=== PATIENT | female | born 1965 | race African-American/Black ===

== ENCOUNTER 2024-05-06 11:11 | Outpatient (AMB) | payer MEDICARE, SELFPAY ==
--- NOTE | 2024-05-06 11:21 | HO.NEPHOV_ITS ---
Vital Signs 05/06/24 11:22 05/06/24 11:35 Height 5 ft 7 in Weight 200 lb 4 oz BMI 31.4 BP 178/80 H 152/80 H Blood Pressure Location Lt brachial Lt brachial Position Sitting Sitting Pulse 75 Pulse Source Pulse Oximeter Pulse Oximetry (%) 99 Oxygen Delivery Method Room Air Intake Visit Reasons: Previous pt/ CON American Sign Language Interpreter Required: No Accompanied by: Self / Same As Patient Allergies No Known Allergies Allergy (Verified 05/06/24 11:24) Medication List - Last Reconciled 05/06/24 by Edi Lance MD amlodipine-benazepril 10-20 mg 1 cap PO DAILY atenolol 25 mg PO DAILY insulin degludec (Tresiba FlexTouch U-100 insulin) 20 units subcut DAILY metformin ER 500 mg PO BID HPI Comments Details: 58 yr old woman with DM and microalbuminuria Here for annual follow up She was on ozempic- lost about 30 lbs and stopepd it due to possible risk of side effects She did not take her antihypertensive medications. [facility] Medical History (Updated 05/06/24 @ 11:37 by Edi Lance MD) Type 2 diabetes mellitus Stage 3 chronic kidney disease HTN (hypertension) Anemia Family History (Updated 05/06/24 @ 11:28 by Julia Diaz MA) Mother Hypertension Maternal Grandmother Diabetes Father Diabetes Social History (Updated 05/06/24 @ 11:28 by Julia Diaz MA) Alcohol intake: current Comment: Occasionally Patient Tobacco Use Status: Former Tobacco user Review of Systems Const Denies fever(s) and Denies weight loss Card Denies chest pain Resp Denies cough and Denies hemoptysis GI Denies abdominal pain, Denies diarrhea and Denies nausea Musc Denies back pain Neuro Denies focal weakness Physical Exam Vital Signs: Last Vital Signs Pulse 75 05/06/24 11:22 BP 152/80 H 05/06/24 11:35 Pulse Ox 99 05/06/24 11:22 Oxygen Delivery Method Room Air 05/06/24 11:22 BMI result Body Mass Index 31.4 Awake. Comfortable. Neck is supple. Mucosa moist. Lungs AE equal Heart S1-S2 heard no gallop. Abdomen soft. Extremities no edema. No involuntary movements. No myoclonus. Const General: comfortable; No acute distress Orientation/consciousness: patient oriented x3 Eyes General: appearance normal, both eyes and all related structures Visual Oquendo: normal visual oquendo by confrontation Neck Neck: Yes supple and Yes no JVD Resp Effort & Inspection: normal respiratory effort and respiratory effort not decreased Auscultation: rhonchi Cardio Palpation: no palpable S3 and no palpable S4 Heart sounds: no rubs GI Inspection: Yes normal to inspection Palpation (GI): Soft to palpation Percussion: Yes normal to percussion Auscultation: normal bowel sounds General: Yes no CVA tenderness Back/Spine/Pelvis Back: no CVA tenderness Skin General skin exam: no petechiae and no purpura Neuro General: patient oriented x3 and no focal motor deficits Extrem General: No clubbing and No edema Results Reviewed Nephrology Results: No Data to Display Assessment & Plan Assessment & Plan (1) Type 2 diabetes mellitus: Code(s): E11.9 - Type 2 diabetes mellitus without complications Category: Medical (2) HTN (hypertension): Code(s): I10 - Essential (primary) hypertension Category: Medical (3) Proteinuria: Code(s): R80.9 - Proteinuria, unspecified Category: Medical Plan Middle-aged man with diabetes mellitus and proteinuria. Renal function stable creatinine of 0.8. Recent urine protein creatinine ratio was 210 Blood pressure is suboptimal primarily because she skipped her medication today. Encouraged her to stay on current medications and stay compliant. Should stay on low-sodium diet. Needs to monitor blood pressure at home; she will buy a home blood pressure cuff. Goal is to maintain A1c less than 7% She will follow up with her PCP and start Ozempic or add additional medication to lower her blood sugar. Orders: Orders Basic Metabolic Panel 3 Months E11.9 - Type 2 diabetes mellitus without complications, I10 - Essential (primary) hypertension Total Protein Urine Random 3 Months E11.9 - Type 2 diabetes mellitus without complications, I10 - Essential (primary) hypertension Creatinine Urine 3 Months E11.9 - Type 2 diabetes mellitus without complications, I10 - Essential (primary) hypertension Coding Level of Care Code Est Pt Level 4 (70117) Diagnoses Type 2 diabetes mellitus E11.9 HTN (hypertension) I10 Proteinuria R80.9
[2024-05-06 11:22] VITALS: BP 178/80; PULSE 75; O2SAT 99; BMI 31.4
[2024-05-06 11:35] VITALS: BP 152/80
== END 2024-05-06 11:40 | disposition home or self-care (01) ==
LOC: HO.HKAE 11:12
PROVIDERS: PCP Nurse Practitioner Acute Care; Visit Provider Internal Medicine Hypertension Specialist
DX: E11.9 Type 2 diabetes mellitus without complications (principal); I10 Essential (primary) hypertension; R80.9 Proteinuria, unspecified
CPT/HCPCS: 99214

== ENCOUNTER → 2024-05-06 11:11 | Outpatient (BNVA) | payer MEDICARE, SELFPAY | PROVIDERS: PCP Nurse Practitioner Acute Care; Visit Provider Internal Medicine Hypertension Specialist | DX: E11.9 Type 2 diabetes mellitus without complications (principal); I10 Essential (primary) hypertension; N18.30 Chronic kidney disease, stage 3 unspecified; R80.9 Proteinuria, unspecified | CPT/HCPCS: 99212 ==

== ENCOUNTER 2024-07-22 14:00 | Outpatient (AMB) | payer MEDICARE, SELFPAY ==
[2024-07-22 14:01] VITALS: BP 170/78; PULSE 79; O2SAT 99; BMI 32.1
--- NOTE | 2024-07-22 14:01 | HO.NEPHOV ---
Vital Signs 07/22/24 14:01 Height 5 ft 7 in Weight 205 lb BMI 32.1 BP 170/78 H Blood Pressure Location Lt brachial Position Sitting Pulse 79 Pulse Source Pulse Oximeter Pulse Oximetry (%) 99 Oxygen Delivery Method Room Air Intake Visit Reasons: 3 mon follow up/ LVM Safety Coordinator Required: No Accompanied by: Self / Same As Patient Allergies No Known Allergies Allergy (Verified 07/22/24 14:03) Medication List - Last Reconciled 07/22/24 by Edi Lance MD amlodipine-benazepril 10-20 mg 1 cap PO DAILY atenolol 25 mg PO DAILY insulin glargine (Basaglar KwikPen U-100 Insulin) units subcut DAILY metformin ER 500 mg PO BID rosuvastatin 20 mg PO BEDTIME semaglutide (Ozempic) mg subcut QWEEK HPI Comments Details: 58 yr old woman with DM and microalbuminuria Here for annual follow up She was on ozempic- lost about 30 lbs and stopped it due to possible risk of side effects She did not take her antihypertensive medications. 07/22/24 BP sub optimal Now diagnosed with ? diab retinopathy Back on Ozempic [facility] Medical History (Updated 05/06/24 @ 11:37 by Edi Lance MD) Type 2 diabetes mellitus Stage 3 chronic kidney disease HTN (hypertension) Anemia Family History (Updated 05/06/24 @ 11:28 by Julia Diaz MA) Mother Hypertension Maternal Grandmother Diabetes Father Diabetes Social History (Updated 05/06/24 @ 11:28 by Julia Diaz MA) Alcohol intake: current Comment: Occasionally Patient Tobacco Use Status: Former Tobacco user Physical Exam Vital Signs: Last Vital Signs Pulse 79 07/22/24 14:01 BP 170/78 H 07/22/24 14:01 Pulse Ox 99 07/22/24 14:01 Oxygen Delivery Method Room Air 07/22/24 14:01 BMI result Body Mass Index 32.1 Const General: comfortable; No acute distress Orientation/consciousness: patient oriented x3 Eyes General: appearance normal, both eyes and all related structures Visual Oquendo: normal visual oquendo by confrontation Neck Neck: Yes supple and Yes no JVD Resp Effort & Inspection: normal respiratory effort and respiratory effort not decreased Auscultation: rhonchi Cardio Palpation: no palpable S3 and no palpable S4 Heart sounds: no rubs GI Inspection: Yes normal to inspection Palpation (GI): Soft to palpation Percussion: Yes normal to percussion Auscultation: normal bowel sounds General: Yes no CVA tenderness Back/Spine/Pelvis Back: no CVA tenderness Skin General skin exam: no petechiae and no purpura Neuro General: patient oriented x3 and no focal motor deficits Extrem General: No clubbing and No edema Results Reviewed Nephrology Results: No Data to Display Assessment & Plan Assessment & Plan (1) Type 2 diabetes mellitus: Code(s): E11.9 - Type 2 diabetes mellitus without complications Category: Medical (2) HTN (hypertension): Code(s): I10 - Essential (primary) hypertension Category: Medical (3) Proteinuria: Code(s): R80.9 - Proteinuria, unspecified Category: Medical Plan Middle-aged woman with diabetes mellitus and proteinuria. Renal function stable creatinine of 0.8. Recent urine protein creatinine ratio was 210 Blood pressure was suboptimal initially. Repeat blood pressure is acceptable Keep current meds Encouraged her to stay on current medications and stay compliant. Should stay on low-sodium diet. Needs to monitor blood pressure at home; she will buy a home blood pressure cuff. Goal is to maintain A1c less than 7% Orders: Orders UA and rflx microscopic 3 Months I10 - Essential (primary) hypertension, R80.9 - Proteinuria, unspecified Creatinine 3 Months I10 - Essential (primary) hypertension, R80.9 - Proteinuria, unspecified Basic Metabolic Panel 3 Months I10 - Essential (primary) hypertension, R80.9 - Proteinuria, unspecified Total Protein Urine Random 3 Months I10 - Essential (primary) hypertension, R80.9 - Proteinuria, unspecified Coding Level of Care Code Est Pt Level 4 (17071) Diagnoses Type 2 diabetes mellitus E11.9 HTN (hypertension) I10 Proteinuria R80.9
== END 2024-07-22 14:02 | disposition home or self-care (01) ==
PROVIDERS: PCP Nurse Practitioner Acute Care; Visit Provider Internal Medicine Hypertension Specialist
DX: I10 Essential (primary) hypertension (principal); E11.29 Type 2 diabetes mellitus with other diabetic kidney complication; R80.9 Proteinuria, unspecified
CPT/HCPCS: 99214

== ENCOUNTER → 2024-07-22 14:00 | Outpatient (BNVA) | payer MEDICARE, SELFPAY | PROVIDERS: PCP Nurse Practitioner Acute Care; Visit Provider Internal Medicine Hypertension Specialist | DX: E11.9 Type 2 diabetes mellitus without complications (principal); R80.9 Proteinuria, unspecified; I10 Essential (primary) hypertension | CPT/HCPCS: 99212 ==

== ENCOUNTER 2024-11-04 14:06 | Outpatient (AMB) | payer MEDICARE, SELFPAY ==
[2024-11-04 14:14] VITALS: BP 132/68; PULSE 71; O2SAT 97; BMI 32.9
--- NOTE | 2024-11-04 14:14 | HO.NEPHOV_ITS ---
Vital Signs 11/04/24 14:14 Height 5 ft 7 in Weight 210 lb BMI 32.9 BP 132/68 Blood Pressure Location Rt brachial Position Sitting Pulse 71 Pulse Source Pulse Oximeter Pulse Oximetry (%) 97 Oxygen Delivery Method Room Air Intake Visit Reasons: 3 Month FU CKD/ LVM Biofuels Processing Technician Required: No Accompanied by: Self / Same As Patient Allergies No Known Allergies Allergy (Verified 11/04/24 14:17) Medication List - Last Reconciled 11/04/24 by Edi Lance MD amlodipine-benazepril 10-20 mg 1 cap PO DAILY atenolol 25 mg PO DAILY insulin glargine (Basaglar KwikPen U-100 Insulin) units subcut DAILY metformin ER 500 mg PO BID rosuvastatin 20 mg PO BEDTIME PRN semaglutide (Ozempic) mg subcut QWEEK HPI Comments Details: 58 yr old woman with DM and microalbuminuria Here for annual follow up She was on ozempic- lost about 30 lbs and stopped it due to possible risk of fabiana e effects She did not take her antihypertensive medications. 07/22/24 BP sub optimal;Now diagnosed with ? diab retinopathy Back on Ozempic 11/04/24 Overall doing well c/o body pain PFSH Medical History (Updated 05/06/24 @ 11:37 by Edi Lance MD) Type 2 diabetes mellitus Stage 3 chronic kidney disease HTN (hypertension) Anemia Family History Mother Hypertension Maternal Grandmother Diabetes Father Diabetes Social History Alcohol intake: current Comment: Occasionally Patient Tobacco Use Status: Former Tobacco user Physical Exam Vital Signs: BMI result Body Mass Index 32.9 Const General: comfortable; No acute distress Orientation/consciousness: patient oriented x3 Eyes General: appearance normal, both eyes and all related structures Visual Oquendo: normal visual oquendo by confrontation Neck Neck: Yes supple and Yes no JVD Resp Effort & Inspection: normal respiratory effort and respiratory effort not decreased Auscultation: rhonchi Cardio Palpation: no palpable S3 and no palpable S4 Heart sounds: no rubs GI Inspection: Yes normal to inspection Palpation (GI): Soft to palpation Percussion: Yes normal to percussion Auscultation: normal bowel sounds General: Yes no CVA tenderness Back/Spine/Pelvis Back: no CVA tenderness Skin General skin exam: no petechiae and no purpura Neuro General: patient oriented x3 and no focal motor deficits Extrem General: No clubbing and No edema Results Reviewed Nephrology Results: No Data to Display Assessment & Plan Assessment & Plan (1) Type 2 diabetes mellitus: Code(s): E11.9 - Type 2 diabetes mellitus without complications Category: Medical (2) HTN (hypertension): Code(s): I10 - Essential (primary) hypertension Category: Medical (3) Proteinuria: Code(s): R80.9 - Proteinuria, unspecified Category: Medical Plan Middle-aged woman with diabetes mellitus and proteinuria. Renal function stable creatinine of 0.8. Recent urine protein creatinine ratio was 210 Blood pressure is acceptable Keep current meds Encouraged her to stay on current medications and stay compliant. Should stay on low-sodium diet. Needs to monitor blood pressure at home; she will buy a home blood pressure cuff. Goal is to maintain A1c less than 7% Orders: Orders Complete Blood Count no Diff 1 Month E11.9 - Type 2 diabetes mellitus without complications, I10 - Essential (primary) hypertension, R80.9 - Proteinuria, unspecified Comprehensive Met. Panel 1 Month E11.9 - Type 2 diabetes mellitus without complications, I10 - Essential (primary) hypertension, R80.9 - Proteinuria, unspecified Creatinine Urine 1 Month E11.9 - Type 2 diabetes mellitus without complications, I10 - Essential (primary) hypertension, R80.9 - Proteinuria, unspecified Hemoglobin A1c 1 Month E11.9 - Type 2 diabetes mellitus without complications, I10 - Essential (primary) hypertension, R80.9 - Proteinuria, unspecified Total Protein Urine Random 1 Month E11.9 - Type 2 diabetes mellitus without complications, I10 - Essential (primary) hypertension, R80.9 - Proteinuria, unspecified Lipid Panel 1 Month E11.9 - Type 2 diabetes mellitus without complications, I10 - Essential (primary) hypertension, R80.9 - Proteinuria, unspecified Coding Level of Care Code Est Pt Level 4 (16129) Diagnoses Type 2 diabetes mellitus E11.9 HTN (hypertension) I10 Proteinuria R80.9
--- OUTSIDE RECORDS SUMMARY | 2024-11-04 17:22 | XMS_ITS | Encounter Summary ---
Author Organization [facility] Address [address] [place] [address] Care Team Providers Care Inorganic Chemist Name Role Phone BaldoMaribell APRN Primary Care Provider [phone] Vianca Golden MD Unavailable [phone] Roberth Dee OD Unavailable [phone] Encounter Details Date Type Department Care Team (Latest Contact Info) Description 10/23/2024 Travel Social History Tobacco Use Types Packs/Day Years Used Date Smoking Tobacco: Never Smokeless Tobacco: Never Alcohol Use Standard Drinks/Week Comments Yes 0 (1 standard drink = 0.6 oz pur e alcohol) rare [facility] Utilities Answer Date Recorded In the past 12 months has e electric, gas, oil, or water company threatened to shut off services in your home? No 10/12/2024 Social Connection and Isolation Panel [NHANES] A nswer Date Recorded In a typical week, how many times do you talk on the phone with family, friends, or neighbors? Patient declined 10/12/2024 Frequency of Social Gatherings with Friends and Family Not on file 10/12/2024 Attends Buddhist Services Not on file 10/12 Active Member of Clubs or Organizations Not on f ile 10/12/2024 Attends Club or Organization Meetings Not on katherine e 10/12/2024 Marital Status Not on file 10/12/2024 AUDIT-C Answer Date Recorded Q1: How often do you have a drink containing alc ohol? Patient declined 10/12/2024 Average Number of Drinks Not on file 02/03/2 025 Frequency of Binge Drinking Not on file 11/2024 PHQ-2 Answer Date Recorded PHQ-2 Total Score 0 10/24/2023 Hunger Vital Sign Answer Date Recorded Within the past 12 months, y ou worried that your food would run out before you got the money to buy more. Patient declined Within the past 12 months, t he food you bought just didn't last and you didn't have money to get more. Patient declined 11/2024 PRAPARE - Transportation Answer Date Re corded In the past 12 months, has l ack of transportation kept you from medical appointments or from getting medications? Patient declined 10/12/2024 In the past 12 months, has l ack of transportation kept you from meetings, work, or from getting things needed for daily living? Patient declined 10/12/2024 Housing Stability Vital Sign Answer Reji e Recorded In the last 12 months, was t here a time when you were not able to pay the mortgage or rent on time? Patient declined 10/12/19 25 In the past 12 months, how m any times have you moved where you were living? 0 10/12/2024 At any time in the past 12 m [facility], were you homeless or living in a care home (including now)? Patient declined 10/12/2024 Sex and Gender Information Value Date Recorded Sex Assigned at Female 02/07/2023 12:20 PM EDT Gender Identity Female 02/07/2023 12:20 PM EDT Sexual Orientation Choose not to disclose 2022 12:20 PM EDT documented as of this encounter Plan of Treatment Upcoming Encounters Date Type Department Care Team (Late st Contact Info) Description 11/05/2024 10:00 AM EST Treatment [facility] [address] [facility] [address] [place] [phone] System, Provider Not In China Martinez, PT [address] [address] 11/10/2024 11:30 AM EST Treatment [facility] [address] [place] [address] Michelle China, PT [address], [place] [address] 11/12/2024 10:00 AM EST Treatment [facility] [address] [place] [address] Michelle China, PT [address] [place] [address] 11/17/2024 9:30 AM EDT Treatment [facility] [address] [place] [address] MichelleCapriceChina, PT [address] [place] [address] 11/19/2024 10:00 AM EDT Treatment [facility] [address] [place] [address] MichelleChina, PT [address] [place] [address] 02/16/2025 9:00 AM EDT Office Visit [address] [place] [address] Maribell Bland, FLESHING MACHINE OPERATOR [address] [facility] [address] [place] [address] 02/17/2025 8:00 AM EDT Consult [facility] [address] [facility] [address] [place] [address] Maribell Bland, FLESHING MACHINE OPERATOR [address] [facility] [address] [place] [address] Irma Cabrera MD [address] [place] [address] documented as of this encounter Goals Goal Patient Goal Type Associated Problems Recent Progress Patient-Stated? Author PT STGs Physical Therapy No China Martinez PT Note: In 4 wks... Pt with knee flexion ROM >/=90deg Pt with highest pain <7/10 Pt with knee extension ROM </=5deg Pt with good quad activation in quad set PT LTGs Physical Therapy No China Martinez PT Note: In 10 wks... Pt with knee ROM 0-120deg Pt with resting pain <2/10 Pt will be able to STS transfer without UE support and equal LE loading. Pt will be able to ascend/descend stairs x3 steps without pain in reciprocal pattern Pt with normalized gait documented as of this encounter Visit Diagnoses Not on filedocumented in this encounter Care Teams Inorganic Chemist Relationship Specialty Start Date End Date Maribell Bland APRN [address] [place] [address] PCP - General Family Medicine 06/06/21 Vianca Golden MD [address] [place] [id number] PCP - [employer] Medicare Attributed 04/09/24 Roberth Dee OD [address] [place] [address] Optometry 09/15/24 documented as of this encounter
--- OUTSIDE RECORDS SUMMARY | 2024-11-04 17:22 | XMS_ITS | Encounter Summary ---
Author Organization [facility] Address [address] [place] [address] Care Team Providers Care Mine Manager Name Role Phone BaldoMaribell APRN Primary Care Provider [phone] Vianca Golden MD Unavailable [phone] Roberth Dee OD Unavailable [phone] Encounter Details Date Type Department Care Team (Late Contact Info) Description 01/02/2023 Scanned Document [facility] GYNECOLOGY SCAN Gynecology, Scan Social History Tobacco Use Types Packs/Day Years Used Date Smoking Tobacco: Never Smokeless Tobacco: Never Alcohol Use Standard Drinks/Week Comments Yes 0 (1 standard drink = 0.6 oz pur e alcohol) rare Sex and Gender Information Value Date Recorded Sex Assigned at Female 02/07/2023 12:20 PM EDT Gender Identity Female 02/07/2023 12:20 PM EDT Sexual Orientation Choose not to disclose 2022 12:20 PM EDT COVID-19 Exposure Response Date Recorded In the last 10 days, have yo u been in contact with someone who was confirmed or suspected to have Coronavirus/COVID-19? No / Unsure 01/03/2023 2:50 PM EDT documented as of this encounter Plan of Treatment Upcoming Encounters Date Type Department Care Team (Late Contact Info) Description 11/05/2024 10:00 AM EST Treatment [facility] [address] [place] [phone] System, Provider Not In China Martinez, PT [address] [facility] [address] [place] [address] 11/10/2024 11:30 AM EST Treatment [facility] [address] [place] [address] China Martinez, PT [address] [place] [address] 11/12/2024 10:00 AM EST Treatment [facility] [address] [place] [address] China Martinez, PT [address] [place] [address] 11/17/2024 9:30 AM EDT Treatment [facility] [address] [place] [address] China Martinez, PT [address] [place] [address] 11/19/2024 10:00 AM EDT Treatment [facility] [address] [place] [address] China Martinez, PT [address] [place] [address] 02/16/2025 9:00 AM EDT Office Visit [facility] [address] [place] [address] Maribell Bland APRN [address] [place] [address] 02/17/2025 8:00 AM EDT Consult [facility] Endocrinology [place] [address] [place] [address] Maribell Bland APRN [address] [facility] [address] [place] [address] Iram Cabrera MD [address] [address] documented as of this encounter Visit Diagnoses Not on filedocumented in this encounter Care Teams Mine Manager Relationship Specialty Start Date End Date Maribell Bland APRN [address] [facility] [address] [place] [address] PCP - General Family Medicine 06/06/21 Vianca Golden MD [address] [place] [address] PCP - [employer] Medicare Attributed 04/09/24 Roberth Dee OD [address] [place] [address] Optometry 09/15/24 documented as of this encounter
--- OUTSIDE RECORDS SUMMARY | 2024-11-04 17:22 | XMS_ITS | Encounter Summary ---
Author Organization [facility] Address [address] [place] [address] Care Team Providers Care Product Tester Name Role Phone BaldoMaribell APRN Primary Care Provider [phone] Vianca Golden MD Unavailable [phone] Roberth Dee OD Unavailable [phone] Encounter Details Date Type Department Care Team (Late Contact Info) Description 01/31/2023 Scanned Document [facility] GYNECOLOGY SCAN Gynecology, Scan Social History Tobacco [...] suspected to have Coronavirus/COVID-19? No / Unsure 01/31/2023 12:44 PM EDT documented as of this encounter Plan of Treatment Upcoming Encounters Date Type Department Care Team (Late Contact Info) Description 11/05/2024 10:00 AM EST Treatment [facility] [address] [place] [phone] System, Provider Not In China Martinez, PT [address] [facility] [address] [place] [address] 11/10/2024 11:30 AM EST Treatment [facility] [address] [place] [address] China Martinez, PT [address] [place] [address] 11/12/2024 10:00 AM EST Treatment [facility] [address] [place] [address] China Martinez, PT [address] [place] [address] 11/17/2024 9:30 AM EDT Treatment [facility] [address] [place] [address] China Martinez, PT [address] [place] [address] 11/19/2024 10:00 AM EDT Treatment [facility] [address] [place] [address] China Martinez, PT [address] [place] [address] 02/16/2025 9:00 AM EDT Office Visit [facility] [address] [place] [address] Maribell Bland APRN [address] [place] [address] 02/17/2025 8:00 AM EDT Consult [facility] Endocrinology [place] [address] [place] [address] Maribell Bland APRN [address] [facility] [address] [place] [address] Irma Cabrera MD [address] [address] documented as of this encounter Visit Diagnoses Not on filedocumented in this encounter Care Teams Product Tester Relationship Specialty Start Date End Date Maribell Bland APRN [address] [facility] [address] [place] [address] PCP - General Family Medicine 06/06/21 Vianca Golden MD [address] [place] [address] PCP - [employer] Medicare Attributed 04/09/24 Roberth Dee OD [address] [place] [address] Optometry 09/15/24 documented as of this encounter
--- OUTSIDE RECORDS SUMMARY | 2024-11-04 17:22 | XMS_ITS | Clinical Summary ---
Author Organization [facility] Address [address] [place] [address] Phone Care Team Providers Care Flatbed Stitcher Name Role Phone Unavailable Primary Care Provider Unavailabl e Allergies No known active allergies Medications insulin degludec (Tresiba FlexTouch) 100 UNIT/ML injection Active metFORMIN (GLUCOPHAGE) 500 MG tablet Take 1 tablet by mouth 1 (one) time each day Active omega-3 (FISH OIL) 1000 MG capsule Take by mouth Active Ozempic, 0.25 or 0.5 MG/DOSE, 2 MG/1.5ML solution pen-injector INJECT 0.5 MG UNDER THE SKIN ONCE A WEEK. 2 Active Multiple Vitamin (multivitamin) tablet Take 1 tablet by mouth 1 (one) time each day Active ferrous sulfate 324 (65 Fe) MG EC tablet Take 324 mg by mouth 1 (one) time each day with breakfast Do not crush, chew, or split. Active clobetasol (TEMOVATE) 0.05 % cream APPLY TO AFFECTED AREA TWICE A DAY 2 Active metFORMIN XR (GLUCOPHAGE-XR) 500 MG 24 hr tablet Take 500 mg by mouth 2 Active b complex vitamins capsule Take 1 capsule by mouth 1 (one) time each day Active simvastatin (ZOCOR) 10 MG tablet Take 10 mg by mouth at bed time 2 Active atenolol (TENORMIN) 25 MG tablet TAKE 1 TABLET BY MOUTH EVERY DAY 90 tablet 3 3 Active amLODIPine-mark zepril (LOTREL 5-20) 5-20 MG per capsule TAKE 1 CAPSULE BY MOUTH EVERY DAY 90 capsule 2 4 Active Active Problems Problem Noted Date Diagnosed Date Type 2 diabetes mellitus without complication Proteinuria 04/12/2021 Morbid obesity 04/12/2021 Chronic kidney disease stage 3 04/12/2021 Hypertensive chronic kidney disease, unspecified, with chronic kidney disease stage I through stage IV, or unspecified 04/12/2021 Anemia of chronic disease 04/12/2021 Benign hypertensive renal disease 04/12/2021 Chronic kidney disease stage 1 04/12/2021 Long-term current use of insulin 01/14/2015 Dysmetabolic syndrome 01/13/2015 Disorder of nervous system due to type 2 diabete s mellitus 01/13/2015 Acquired acanthosis nigricans 01/13/2015 Hypercholesterolemia 01/13/2015 Hypertensive disorder 01/13/2015 Uncontrolled type 2 diabetes mellitus 01/13/2015 Overview (06/09/2024): Replacing diagnoses that were inactivated after the 06/09/24 Regulatory Import Family History Medical History Relation Comments Hypertension Mother Hypertension Sibling Relation Status Comments Father Unknown Mother Unknown Sibling Social History Tobacco Use Types Packs/Day Years Used Date Smoking Tobacco: Former Cigarettes Q uit: 09/09/1986 Smokeless Tobacco: Never Tobacco Cessation:Counseling Given: Not Answered Alcohol Use Standard Drinks/Week Comments Yes 0 (1 standard drink = 0.6 oz pure alcohol) Alcoholic Drinks/day: Occasional social drink Comments Unknown Sex and Gender Information Value Date Recorded Sex Assigned at Not on file Legal Sex Female 5:01 PM EST Gender Identity Not on file Sexual Orientation Not on file Last Filed Vital Signs Vital Sign Reading Time Taken Comments Blood Pressure 120/70 09/25/2022 1:56 PM EST Pulse 88 09/25/2022 1:56 PM EST Temperature - - Respiratory Rate - - Oxygen Saturation 98% 09/25/2022 1:56 PM EST Inhaled Oxygen Concentration - - Weight 97.5 kg (215 lb) 09/25/2022 1:56 PM EST Height 167.6 cm (5' 6 ) 11/24/2019 12:00 PM EDT Body Mass Index 34.7 11/24/2019 12:00 PM EDT Plan of Treatment Health Maintenance Due Date Last Done Comments Breast Cancer Screening 1965 Pneumococcal Vaccine: Pediatrics (0 to 5 Years) and At-Risk Patients (6 to 64 Years) (1 of 2 - PCV) 1969 Colorectal Cancer Screening: Annual FOBT 2012 Colorectal Cancer Screening: Colonoscopy 2012 Colorectal Cancer Screening: Sigmoidoscopy 2012 Diabetes: Ophthalmology Exam 10/10/2020 Diabetes: Pedal Pulse Checked 10/10/2020 Diabetes: Sensory Foot Exam 10/10/2020 Diabetes: Visual Foot Exam 10/10/2020 Diabetes: Hemoglobin A1C 08/29/2021 021, 06/10/2019 Influenza Vaccine (#1) 2024 Hepatitis B Vaccine Aged Out No longe r eligible based on patient's age to complete this topic Procedures Procedure Name Priority Date/Time Associated Diagnosis Comments EXT RESULT ENTRY Routine 05/30/2021 from Last 3 Months or Most Recently Relevant to Health Maintenance Results * (ABNORMAL) EXT RESULT ENTRY (05/30/2021) Sodium 138 137 - 147 Potassium 4.7 3.4 - 5.5 Chloride 104 99 - 108 Bicarbonate (CO2) 24 22 - 30 mmol/L Glucose 169 60 - 200 BUN 16 4 - 21 mg/dL Creatinine 0.82 0.50 - 1.10 mg/dL Calcium 9.6 8.7 - 10.7 mg/dL Phosphorus, Serum 4.5 eGFR Non-Afr Finnish 79 eGFR 92 Hemoglobin A1C 11.6(A) 4.0 - 6.0 Creatinine, Urine Random 175 mg/dL Urine Protein/Creatini ne Ratio 120 mg/g creat 05/30/2021 Historical Provider LAB BLOOD ORDERABLES Mis l Result from Last 3 Months or Most Recently Relevant to Health Maintenance Insurance [place]
--- OUTSIDE RECORDS SUMMARY | 2024-11-04 17:22 | XMS_ITS | Encounter Summary ---
Author Organization [facility] Address [address] [place] [address] Care Team Providers Care Salvage Diver Name Role Phone Maribell Bland APRN Primary Care Provider [phone] Vianca Golden MD Unavailable [phone] Roberth Dee OD Unavailable [phone] Reason for Visit * Reason Comments Follow-up Encounter Details Date Type Department Care Team (Latest Contact Info) Description 10/14/2024 9:00 AM EST Office Visit [address] [place] [phone] Maribell Bland APRN [address] [facility] [address] [place] [address] Type II diabetes mellitus with neurological manifestations (HCC) (Primary Dx); Benign essential hypertension Social History Tobacco Use Types Packs/Day Years Used Date Smoking Tobacco: Never Smokeless Tobacco: Never Alcohol Use Standard Drinks/Week Comments Yes 0 (1 standard drink = 0.6 oz pur e alcohol) rare C Utilities Answer Date Recorded In the past 12 months has [employer] electric, gas, oil, or water company threatened to shut off services in your home? No 10/12/2024 Social Connection and Isolation Panel [NHANES] A nswer Date Recorded In a typical week, how many times do you talk on the phone with family, friends, or neighbors? Patient declined 10/12/2024 Frequency of Social Gatherings with Friends and Family Not on file 10/12/2024 Attends Congregation Services Not on file 10/12 Active Member of Clubs or Organizations Not on f ile 10/12/2024 Attends Club or Organization Meetings Not on katherine e 10/12/2024 Marital Status Not on file 10/12/2024 AUDIT-C Answer Date Recorded Q1: How often do you have a drink containing alc ohol? Patient declined 10/12/2024 Average Number of Drinks Not on file 025 Frequency of Binge Drinking Not on [...] any time in the past 12 m [facility], were you homeless or living in a fci (including now)? Patient declined 10/12/2024 Sex and Gender Information Value Date Recorded Sex Assigned at Female 02/07/2023 12:20 PM EDT Gender Identity Female 02/07/2023 12:20 PM EDT Sexual Orientation Choose not to disclose 2022 12:20 PM EDT documented as of this encounter Last Filed Vital Signs Vital Sign Reading Time Taken Comments Blood Pressure 138/68 10/14/2024 9:17 AM EST Pulse 80 10/14/2024 8:30 AM EST Temperature 36 ??C (96.8 ??F) 10/14/2024 8:30 AM EST Respiratory Rate 18 10/14/2024 8:30 AM EST Oxygen Saturation 99% 10/14/2024 8:30 AM EST Inhaled Oxygen Concentration - - Weight 95.2 kg (209 lb 12.8 oz) 10/14/2024 8:30 AM EST Height 167.6 cm (5' 6 ) 10/14/2024 8:30 AM EST Body Mass Index 33.86 10/14/2024 8:30 AM EST documented in this encounter Progress Notes * Maribell Bland, MEDICAL LAB DIRECTOR - 10/14/2024 8:55 AM EST Assessment & Plan The following records were reviewed today: Problem List Items Addressed This Visit Endocrine Type II diabetes mellitus with neurological manifestations (HCC) - Primary Patient hemoglobin A1c is 6.6 which as improved from previous. Patient is at goal No side effects with current regimen She/will continue his current regimen Continue to recommend ADA diet. Exercise a minimum of 150 minutes/week. Annual eye exam Will continue to monitor quarterly. Relevant Orders BASIC METABOLIC PANEL Hemoglobin A1C with Estimated Average Glucose POCT Glycosylated Hemoglobin (Hb A1C) Cardiovascular and Mediastinum Benign essential hypertension Regi's blood pressure borderline elevated today. She notes she is not taking her antihypertensive. At this time she will continue Lotrel 06/28., Tenormin.. Recommend exercising a minum of 150 minutes per week. modified Mediterranean style diet high in Fibrous Vegetables such as salad greens, raw carrots, broccoli, cauliflower, mushrooms, onions, asparagus, radishes, artichokes, cabbage, sweet potatoes, olive oil to promote growth of good bacteria in the GI tract; low in processed foods and sweets. Return in 2 to 4 weeks for blood pressure check Office Visit on 07/21/2024 Component Date Value Ref Range Status Hemoglobin A1C 07/21/2024 11.8 (A) 4.0 - 6.0 % Final Lot Number 07/21/2024 [id number] Final Dispatcher Chief Oil 07/21/2024 Pass Pass Final Cholesterol, Total 07/23/2024 130 <200 mg/dL Final Cholesterol, HDL 07/23/2024 42 (L) > OR = 50 mg/dL Final Triglycerides 07/23/2024 126 <150 mg/dL Final LDL Cholesterol 07/23/2024 67 mg/dL (calc) Final Comment: Reference range: <100 Desirable range <100 mg/dL for primary prevention; <70 mg/dL for patients with CHD or diabetic patients with > or = 2 CHD risk factors. LDL-C is now calculated using the Mauricio calculation, which is a validated novel method providing better accuracy than the Friedewald equation in the estimation of LDL-C. Robert ROSAS et al. JYOTSNA. 2013;310(19): 2575-6193 (http://education.[employer]/faq/EYQ432) Cholesterol/HDL Ratio 07/23/2024 3.1 <5.0 (calc) Final Non HDL Chol. (LDL+VLDL) 07/23/2024 88 <130 mg/dL (calc) Final Comment: For patients with diabetes plus 1 major ASCVD risk factor, treating to a non-HDL-C goal of <100 mg/dL (LDL-C of <70 mg/dL) is considered a therapeutic option. Creatinine, Urine, Random 07/23/2024 206 20 - 275 mg/dL Final Microalbumin, Urine, Random 07/23/2024 5.2 See Note: mg/dL Final Comment: Reference Range: Reference Range Not established Microalbumin/Creatinine Ratio 07/23/2024 25 <30 mg/g creat Final Comment: The ADA defines abnormalities in albumin excretion as follows: Albuminuria Category Result (mg/g creatinine) Normal to Mildly increased <30 Moderately increased 30-299 Severely increased > OR = 300 The ADA recommends that at least two of three specimens collected within a 3-6 month period be abnormal before considering a patient to be within a diagnostic category. Glucose 07/23/2024 87 65 - 99 mg/dL Final Comment: Fasting reference interval Blood Urea Nitrogen (BUN) 07/23/2024 11 7 - 25 mg/dL Final Creatinine 07/23/2024 0.77 0.50 - 1.05 mg/dL Final Creatinine w/ eGFR 07/23/2024 88 > OR = 60 mL/min/1.73m2 Final BUN/Creatinine Ratio 07/23/2024 SEE NOTE: 6 - 22 (calc) Final Comment: Not Reported: BUN and Creatinine are within reference range. Sodium 07/23/2024 142 135 - 146 mmol/L Final Potassium 07/23/2024 4.4 3.5 - 5.3 mmol/L Final Chloride 07/23/2024 104 98 - 110 mmol/L Final CO2 07/23/2024 27 20 - 32 mmol/L Final Calcium 07/23/2024 9.9 8.6 - 10.4 mg/dL Final Protein, Total 07/23/2024 7.2 6.1 - 8.1 g/dL Final Albumin 07/23/2024 4.4 3.6 - 5.1 g/dL Final Globulin 07/23/2024 2.8 1.9 - 3.7 g/dL (calc) Final Albumin/Globulin Ratio 07/23/2024 1.6 1.0 - 2.5 (calc) Final Bilirubin, Total 07/23/2024 0.3 0.2 - 1.2 mg/dL Final Alkaline Phosphatase 07/23/2024 49 37 - 153 U/L Final Aspartate Aminotrans (AST) 07/23/2024 17 10 - 35 U/L Final Alanine Aminotrans (ALT) 07/23/2024 17 6 - 29 U/L Final There are no Patient Instructions on file for this visit. Return in about 4 months (around 02/11/2025). During this visit patients's goals and treatment preferences have been used to guide decision making. Patient understands his/her options and the pros and cons of these options. Subjective Subjective Patient ID: Regi Peres is a 58 y.o. female. Chief Complaint Patient presents with Follow-up Regi notes she does not check her blood glucose daily. She reports compliance with all her medication. She does not have any side effects. Today her blood pressure is borderline elevated. She reports not taking he blood pressure medication today. Review of Systems Constitutional: Negative for activity change and fatigue. HENT: Positive for congestion. Eyes: Negative for visual disturbance. Respiratory: Positive for cough. Negative for apnea, chest tightness, shortness of breath and wheezing. Cardiovascular: Negative for chest pain, palpitations and leg swelling. Genitourinary: Negative for frequency and urgency. Neurological: Negative for dizziness, speech difficulty, weakness, numbness and headaches. Objective Objective Vitals: 10/14/24 0830 10/14/24 0917 BP: (!) 140/78 138/68 BP Location: Right arm Patient Position: Sitting Cuff Size: Large Pulse: 80 Resp: 18 Temp: 96.8 ??F (36 ??C) TempSrc: Temporal SpO2: 99% Weight: 95.2 kg (209 lb 12.8 oz) Height: 1.676 m (5' 6 ) Body mass index is 33.86 kg/m??. Physical Exam Constitutional: Appearance: She is well-developed. HENT: Head: Normocephalic and atraumatic. Eyes: General: No scleral icterus. Conjunctiva/sclera: Conjunctivae normal. Cardiovascular: Rate and Rhythm: Normal rate and regular rhythm. Heart sounds: No murmur heard. No friction rub. No gallop. Pulmonary: Effort: Pulmonary effort is normal. Breath sounds: Normal breath sounds. No wheezing or rales. Skin: General: Skin is warm and dry. Findings: No rash. Neurological: Mental Status: She is alert and oriented to person, place, and time. Coordination: Coordination normal. Psychiatric: Behavior: Behavior normal. Current Outpatient Medications: amLODIPine-benazepril (LOTREL) 10-20 MG per capsule, TAKE 1 CAPSULE BY MOUTH EVERY DAY, Disp: 90 capsule, Rfl: 1 Ascorbic Acid (vitamin C) 1000 MG tablet, Take 1 tablet (1,000 mg total) by mouth daily., Disp: , Rfl: aspirin enteric coated (ECOTRIN LOW STRENGTH) 81 MG EC tablet, Take 1 tablet (81 mg total) by mouthdaily., Disp: , Rfl: atenolol (TENORMIN) 25 MG tablet, Take 1 tablet (25 mg total) by mouth daily., Disp: , Rfl: clobetasol (TEMOVATE) 0.05 % cream, APPLY TO AFFECTED AREA TWICE A DAY, Disp: 45 g, Rfl: 0 coenzyme Q10 (CoQ10) 100 MG capsule, Take 1 capsule (100 mg total) by mouth daily., Disp: 90 capsule, Rfl: 3 ergocalciferol (VITAMIN D2,DRISDOL) 91730 units Cap, Take by mouth., Disp: , Rfl: ferrous gluconate (FERGON) 324 MG tablet, Take 1 tablet (324 mg total) by mouth every morning with breakfast. Take 2 hours before or 4 hours after acid reducers., Disp: , Rfl: ferrous sulfate 325 (65 FE) MG tablet, Take 1 tablet (325 mg total) by mouth daily. Take 2 hours before or 4 hours after acid reducers., Disp: , Rfl: insulin glargine, BASAGLAR KWIKPEN, 100 UNIT/ML prefilled pen injection, Inject 35 units under the skin nightly, Disp: 15 mL, Rfl: 3 Insulin Pen Needle 31G X 5 MM Misc, Please utilize nightly with insulin., Disp: 100 pen needle, Rfl: 1 magnesium oxide 400 (241.3 Mg) MG Tab tablet, Take 1 tablet (400 mg total) by mouth daily., Disp: ,Rfl: metFORMIN (GLUCOPHAGE-XR) 500 MG 24 hr tablet, TAKE 1 TABLET BY MOUTH TWICE A DAY, Disp: 180 tablet, Rfl: 0 multivitamin Tab tablet, Take 1 tablet by mouth daily., Disp: , Rfl: omega-3 acid ethyl esters (LOVAZA) 1 G capsule, Take by mouth., Disp: , Rfl: OneTouch Verio strip, TEST BLOOD SUGAR 3 TIMES A DAY, Disp: , Rfl: Probiotic Product (PROBIOTIC-10 PO), Take by mouth., Disp: , Rfl: rosuvastatin (CRESTOR) 20 MG tablet, TAKE 1 TABLET BY MOUTH EVERY DAY, Disp: 90 tablet, Rfl: 0 semaglutide (Ozempic, 1 MG/DOSE,) (1 mg/dose pen) prefilled pen injection, INJECT 1 MG UNDER THE SKIN ONCE A WEEK., Disp: 3 mL, Rfl: 1 triamcinolone (KENALOG) 0.5 % ointment, Apply topically 2 (two) times a day., Disp: 60 g, Rfl: 0 No Known Allergies Past Medical History: Diagnosis Date Depression Diabetes mellitus (HCC) Hyperlipidemia Hypertension Vitamin D deficiency Social History Tobacco Use Smoking status: Never Smokeless tobacco: Never Vaping Use Vaping status: Never Used Substance Use Topics Alcohol use: Yes Comment: rare Drug use: Never History reviewed. No pertinent family history. documented in this encounter Miscellaneous Notes * Assessment & Plan Note - Maribell Bland APRN - 10/14/2024 12:08 PM EST Associated Problem(s): Benign essential hypertension Regi's blood pressure borderline elevated today. She notes she is not taking her antihypertensive. At this time she will continue Lotrel 06/28., Tenormin.. Recommend exercising a minum of 150 minutes per week. modified Mediterranean style diet high in Fibrous Vegetables such as salad greens, raw carrots, broccoli, cauliflower, mushrooms, onions, asparagus, radishes, artichokes, cabbage, sweet potatoes, olive oil to promote growth of good bacteria in the GI tract; low in processed foods and sweets. Return in 2 to 4 weeks for blood pressure check * Assessment & Plan Note - Maribell Bland APRN - 10/14/2024 12:05 PM EST Associated Problem(s): Type II diabetes mellitus with neurological manifestations (HCC) Patient hemoglobin A1c is 6.6 which as improved from previous. Patient is at goal No side effects with current regimen She/will continue his current regimen Continue to recommend ADA diet. Exercise a minimum of 150 minutes/week. Annual eye exam Will continue to monitor quarterly. documented in this encounter Plan of Treatment Upcoming Encounters Date Type Department Care Team (Late st Contact Info) Description 11/05/2024 10:00 AM EST Treatment [facility] [address] [place] [phone] System, Provider Not In China Martinez, PT [address] [address] 11/10/2024 11:30 AM EST Treatment [facility] [address] [place] [phone] China Martinez, PT [address] [address] 11/12/2024 10:00 AM EST Treatment [facility] [address] [facility] [address] [place] [address] China Martinez, PT [address] [id number] 11/17/2024 9:30 AM EDT Treatment [facility] [address] [place] [phone] Nik Martineza, PT [address] [place] [address] 11/19/2024 10:00 AM EDT Treatment [facility] [address] [place] [address] China Martinez, PT [address] [place] [address] 02/16/2025 9:00 AM EDT Office Visit [address] [phone] Maribell Bland, MEDICAL LAB DIRECTOR [address] [address] 02/17/2025 8:00 AM EDT Consult [facility] Endocrinology [place] [address] [place] [phone] Maribell Bland, MEDICAL LAB DIRECTOR [address] [address] Irma Cabrera MD [address] [facility] [address] [place] [address] Scheduled Orders Name Type Priority Associated Diagnoses Orde r Schedule BASIC METABOLIC PANEL Lab Routine Type II diabetes mellitus with neurological manifestations (HCC) Ordered: 10/14/2024 Hemoglobin A1C with Estimated Average Glucose Lab Routine Type II diabetes mellitus with neurological manifestations (HCC) Ordered: 10/14/2024 documented as of this encounter Goals Goal [...] normalized gait documented as of this encounter Procedures Procedure Name Priority Date/Time Associated Diagnosis Comments POCT GLYCOSYLATED HEMOGLOBIN (HGB A1C) Routine 10/14/2024 12:16 PM EST Type II diabetes mellitus with neurological manifestations (HCC) documented in this encounter Results * (ABNORMAL) POCT Glycosylated Hemoglobin (Hb A1C) (10/14/2024 12:16 PM EST) Hemoglobin A1C 6.6(A) 4.0 - 6.0 % Lot Number [id number] Dispatcher Chief Oil Pass Pass Blood 10/14/2024 12:1 6 PM EST Maribell Bland APRN POINT OF CARE TEST O RDERABLES documented in this encounter Visit Diagnoses Diagnosis Type II diabetes mellitus with neurological manifestations (HCC)- Primary Type II or unspecified type diabetes mellitus with neurological manifestations, not stated as uncontrolled Benign essential hypertension Essential hypertension, benign documented in this encounter Care Teams Salvage Diver Relationship Specialty Start Date End Date Maribell Bland APRN [address] [place] [address] PCP - General Family Medicine 06/06/21 Vianca Golden MD [address] [place] [address] PCP - [employer] Medicare Attributed 04/09/24 Roberth Dee OD [address] [place] [address] Optometry 09/15/24 documented as of this encounter
--- OUTSIDE RECORDS SUMMARY | 2024-11-04 17:22 | XMS_ITS | Clinical Summary ---
Author Organization [facility] Address [address] [place] [address] Care Team Providers Care Barrel Assembly Inspector Name Role Phone Maribell Bland APRN Primary Care Provider [phone] Vianca Golden MD Unavailable [phone] Roberth Dee OD Unavailable [phone] Allergies No known active allergies Medications Medication Sig Dispensed Refills Start Date End Date Status atenolol (TENORMIN) 25 MG tablet Take 1 tablet (25 mg total) by mouth daily. 02/23/20 20 Active OneTouch Verio strip TEST BLOOD SUGAR 3 TIMES A DAY 04/03/20 20 Active omega-3 acid ethyl esters (LOVAZA) 1 G capsule Take by mouth. Active triamcinolone (KENALOG) 0.5 % ointmentIndications:Flex ural eczema Apply topically 2 (two) times a day. 60 g 04/18/20 20 Active magnesium oxide 400 (241.3 Mg) MG Tab tablet Take 1 tablet (400 mg total) by mouth daily. Active ferrous gluconate (FERGON) 324 MG tablet Take 1 tablet (324 mg total) by mouth every morning with breakfast. Take 2 hours before or 4 hours after acid reducers. Active Ascorbic Acid (vitamin C) 1000 MG tablet Take 1 tablet (1,000 mg total) by mouth daily. Active ergocalciferol (VITAMIN D2,DRISDOL) 27265 units Cap Take by mouth. Active Probiotic Product (PROBIOTIC-10 PO) Take by mouth. Active clobetasol (TEMOVATE) 0.05 % creamIndications:Type 2 diabetes mellitus with diabetic dermatitis, with long-term current use of insulin (HCC) APPLY TO AFFECTED AREA TWICE A DAY 45 g 06/30/20 22 Active multivitamin Tab tablet Take 1 tablet by mouth daily. Active aspirin enteric coated (ECOTRIN LOW STRENGTH) 81 MG EC tablet Take 1 tablet (81 mg total) by mouth daily. Active ferrous sulfate 325 (65 FE) MG tablet Take 1 tablet (325 mg total) by mouth daily. Take 2 hours before or 4 hours after acid reducers. Active Insulin Pen Needle 31G X 5 MM MiscIndications:Type 2 diabetes mellitus with diabetic dermatitis, with long-term current use of insulin (HCC) Please utilize nightly with insulin. 100 pen needle 1 06/16/20 24 Active coenzyme Q10 (CoQ10) 100 MG capsuleIndications:Pure hypercholesterolemia Take 1 capsule (100 mg total) by mouth daily. 90 capsule 3 06/18/20 24 Active insulin glargine, BASAGLAR KWIKPEN, 100 UNIT/ML prefilled pen injectionIndications:Typ e II diabetes mellitus with neurological manifestations (HCC) Inject 35 units under the skin nightly 15 mL 3 07/21/20 24 Active amLODIPine-benazepril (LOTREL) 10-20 MG per capsuleIndications:Benig n essential hypertension TAKE 1 CAPSULE BY MOUTH EVERY DAY 90 capsule 1 08/04/20 24 Active rosuvastatin (CRESTOR) 20 MG tabletIndications:Pure hypercholesterolemia TAKE 1 TABLET BY MOUTH EVERY DAY 90 tablet 09/11/19 25 Active metFORMIN (GLUCOPHAGE-XR) 500 MG 24 hr tabletIndications:Type II diabetes mellitus with neurological manifestations (HCC) TAKE 1 TABLET BY MOUTH TWICE A DAY 180 tablet 09/14/19 25 Active semaglutide (Ozempic, 1 MG/DOSE,) (1 mg/dose pen) prefilled pen injectionIndications:Typ e II diabetes mellitus with neurological manifestations (HCC) INJECT 1 MG UNDER THE SKIN ONCE A WEEK. 3 mL 1 10/13/19 25 Active semaglutide (OZEMPIC) (1 mg/dose pen) prefilled pen injectionIndications:Typ e II diabetes mellitus with neurological manifestations (HCC) Inject 1 mg under the skin once a week. 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 Uncontrolled Increase Ozmepic 1 mg weekly, Basaglar fronm 30 to 35 units Check bG twice daily ADA diet. Exercise a minimum of 150 minutes/week. Annual eye exam and follow-up with retina specialist Will continue to monitor quarterly. Achilles tendinitis 11/28/2022 Allergic rhinitis 11/28/2022 Asthmatic bronchitis 11/28/2022 Benign essential hypertension 11/28/2022 Assessment & Plan (10/14/2024 12:08 PM EST): Regi's blood pressure borderline elevated today. She [...] to 4 weeks for blood pressure check Assessment & Plan (07/26/2024 7:00 PM EST): Blood pressure is normal. No side effects. Renal function is stable. Patient will continue amlodipine-benazepril, atenolol. DASH diet Recommend a minimum of 150 minutes of exercise a week. Assessment & Plan (07/21/2024 11:08 PM EST): Blood pressure is normal. No side effects. Renal function is stable. Patient will continue lisinopril. DASH diet Recommend a minimum of 150 minutes of exercise a week. Assessment & Plan (10/26/2023 5:38 PM EST): Regi blood pressure is elevated. Will increase Lotrel. Low sodium diet. Assessment & Plan (12/07/2022 8:31 PM EDT): Regi's blood pressure is normal on Atenolol and Lotrel. Low sodium. CKD (chronic kidney disease) stage 2, GFR 60-89 ml/min 11/28/2022 Hyperlipidemia 11/28/2022 Assessment & Plan (07/21/2024 11:12 PM EST): Will continue atorvastatin daily for LDL less than 70. Assessment & Plan (12/07/2022 8:32 PM EDT): The 10-year ASCVD risk score (Priyank LUNA, et al., 2019) is: 19.1% Values used to calculate the score: Age: 57 years Sex: Female Is Non- : Yes Diabetic: Yes Tobacco smoker: No Systolic Blood Pressure: 128 mmHg Is BP treated: Yes HDL Cholesterol: 40 mg/dL Total Cholesterol: 217 mg/dL Continue atorvastatin daily. Pityriasis versicolor 11/28/2022 Schizoaffective disorder 11/28/2022 Assessment & Plan (10/26/2023 5:41 PM EST): Stable will continue to follow-up with provider Assessment & Plan (12/07/2022 8:32 PM EDT): Continue to followup with behavioral health provider. Thyroid nodule 11/28/2022 Type 2 diabetes mellitus wit h diabetic dermatitis, with long-term current use of insulin 12/01/2021 Assessment & Plan (06/18/2024 10:53 AM EDT): Today fasting blood glucose 214 mg/dl this morning. Assessment & Plan (10/24/2023 11:39 AM EST): Patient hemoglobin A1c is 8.7 . Improved from 14. Will increase Ozempic to 1 mg Continue to recommend ADA diet. Exercising 3 to 5 days a week for minimal 35 minutes. Annual eye exam Will continue to monitor quarterly. Assessment & Plan (12/01/2021 5:06 PM EDT): Regi hemoglobin A1c 6.7 Controlled will continue Ozempic, Metformin and tresiba. ADA diet Exercise 3-5 days a week for at least 35 minutes. Annual eye exam. Benign hypertensive renal disease 04/12/2021 Assessment & Plan (12/01/2021 5:09 PM EDT): Blood pressure is normal and will continue Amlodipine- benazepril and atenolol. Renal function is normal Will continue to monitor continue low sodium diet. manager intermediate current use of insulin 01/14/2015 Dysmetabolic syndrome X 01/13/2015 Assessment & Plan (12/07/2022 8:31 PM EDT): Eat more more fruit, vegatable, and lean meat. avoid saturated fat, processed food or transfat. Exercise 3-5 days a week for at least 35 minutes. 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 Patient is at goal No side effects with current regimen She/will continue his current regimen Continue to recommend ADA diet. Exercise a minimum of 150 minutes/week. Annual eye exam Will continue to monitor quarterly. Assessment & Plan (07/26/2024 6:57 PM EST): Regi with uncontrol DM will add Ozempic. Continue Basaglar and metformin Discuss the importance of medication and diet compliance. Will start using continuous glucose monitor. Follow up in 4 weeks. Assessment & Plan (07/21/2024 11:20 PM EST): Will continue ozempic, basaglar and metformin. Continue to monitor lower extremity for ulceration or infection. Assessment & Plan (12/07/2022 8:27 PM EDT): Regi's hemoglobin A1c has increased from 6.3-8.1. She has noticed increasing her calories and sweets last 3 months. Reviewed decreasing her intake hydrated and saturated fat. Recommend physical therapy evaluation. Continue her current regimen of Ozempic, metformin and lantus. Will follow-uip in 3 months. 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 Overview (08/04/2024): Due to T2DM with A1C= 11.8 on 07/21/24 Encounters Date Type Department Care Team Description 11/03/2024 10:30 AM EST Treatment [facility] [address] [place] [address] System, Provider Not In China Martinez, PT Bilateral post-traumatic osteoarthritis of knee (Primary Dx); Chronic pain of left knee; Derangement of lateral meniscus of left knee; Difficulty walking 11/03/2024 Travel 10/29/2024 10:30 AM EST Treatment [facility] [address] [place] [address] System, Provider Not In China Martinez, PT Bilateral post-traumatic osteoarthritis of knee (Primary Dx); Chronic pain of left knee; Derangement of lateral meniscus of left knee; Difficulty walking 10/27/2024 10:30 AM EST Treatment [facility] [address] [place] [address] System, Provider Not In China Martinez, PT Bilateral post-traumatic osteoarthritis of knee (Primary Dx); Chronic pain of left knee; Derangement of lateral meniscus of left knee; Difficulty walking 10/27/2024 Travel 10/23/2024 10:30 AM EST Treatment [facility] [address] [place] [address] System, Provider Not In China Martinez, PT Bilateral post-traumatic osteoarthritis of knee (Primary Dx); Chronic pain of left knee; Derangement of lateral meniscus of left knee; Difficulty walking 10/23/2024 Travel 10/14/2024 9:00 AM EST Office Visit [facility] [address] [facility] [address] [place] [address] Maribell Bland APRN Type II diabetes mellitus with neurological manifestations (HCC) (Primary Dx); Benign essential hypertension 10/14/2024 Travel 10/10/2024 Refill [facility] [address] [place] [address] Maribell Bland PERSONNEL REPRESENTATIVE Type II diabetes mellitus with neurological manifestations (HCC) 09/30/2024 10:00 AM EST Treatment [facility] [address] [place] [address] System, Provider Not In China Martinez, PT Bilateral post-traumatic osteoarthritis of knee (Primary Dx); Chronic pain of left knee; Derangement of lateral meniscus of left knee; Difficulty walking 09/30/2024 Travel 09/24/2024 10:00 AM EST Treatment [facility] [address] [place] [address] System, Provider Not In Axel Bull, PT Bilateral post-traumatic osteoarthritis of knee (Primary Dx); Chronic pain of left knee; Derangement of lateral meniscus of left knee 09/22/2024 11:30 AM EST Treatment [facility] [address] [place] [address] System, Provider Not In China Martinez, PT Bilateral post-traumatic osteoarthritis of knee (Primary Dx); Chronic pain of left knee; Derangement of lateral meniscus of left knee; Difficulty walking 09/22/2024 Travel 09/15/2024 11:30 AM EST Treatment [facility] [address] [place] [address] System, Provider Not In China Martinez, PT Bilateral post-traumatic osteoarthritis of knee (Primary Dx); Chronic pain of left knee; Derangement of lateral meniscus of left knee; Difficulty walking 09/15/2024 Travel 09/14/2024 Scanned Document [address] [place] [address] Primary Care, Scan 09/14/[address] [place] [address] Maribell Bland APRN Type II diabetes mellitus with neurological manifestations (HCC) 09/08/[address] [place] [address] Maribell Bland, UMANG Pure hypercholesterolemia 09/04/2024 11:30 AM EST Treatment [facility] [address] [place] [address] System, Provider Not In Piedad Hernandez, PT Bilateral post-traumatic osteoarthritis of knee (Primary Dx); Chronic pain of left knee; Derangement of lateral meniscus of left knee; Difficulty walking 09/04/2024 Travel 08/27/2024 11:30 AM EST Evaluation [facility] [address] [place] [address] Maribell Bland, China Estes, CHAR Bilateral post-traumatic osteoarthritis of knee (Primary Dx); Chronic pain of left knee; Derangement of lateral meniscus of left knee; Difficulty walking 08/27/2024 Plan of Care Documentation [facility] [place] [address] [place] [address] 08/27/[address] [address] Maribell Bland APRN 08/27/2024 Travel 08/18/2024 Transcribe Orders [facility] [place] [address] [place] [address] Pete Macias MD Bilateral post-traumatic osteoarthritis of knee (Primary Dx) from Last 3 Months Immunizations Name Administration Dates Next Due Tdap 06/28/2016 Social History Tobacco Use Types Packs/Day Years Used Date Smoking Tobacco: Never Smokeless Tobacco: Never Tobacco Cessation:Counseling Given: Not Answered Alcohol Use Standard Drinks/Week Comments Yes 0 (1 standard drink = 0.6 oz pur e alcohol) rare [facility] Utilities Answer Date Recorded In the past 12 months has th e electric, gas, oil, or water company threatened to shut off services in your home? No 10/12/2024 Social Connection and Isolation Panel [NHANES] A nswer Date Recorded In a typical week, how many times do you talk on the phone with family, friends, or neighbors? Patient declined 10/12/2024 Frequency of Social Gatherings with Friends and Family Not on file 10/12/2024 Attends Christian Services Not on file 10/12 Active Member [...] any time in the past 12 m [facility], were you homeless or living in a fdc (including now)? Patient declined 10/12/2024 Sex and Gender Information Value Date Recorded Sex Assigned at Female 02/07/2023 12:20 PM EDT Gender Identity Female 02/07/2023 12:20 PM EDT Sexual Orientation Choose not to disclose 2022 12:20 PM EDT Last Filed Vital Signs Vital Sign Reading [...] Mass Index 33.86 10/14/2024 8:30 AM EST Plan of Treatment Upcoming Encounters Date Type Department Care Team (Late st Contact Info) Description 11/05/2024 10:00 AM EST Treatment [facility] [address] [place] [phone] System, Provider Not In China Martinez, PT [address] [id number] 11/10/2024 11:30 AM EST Treatment [facility] [address] [place] [address] China Martinez, PT [address] [id number] 11/12/2024 10:00 AM EST Treatment [facility] [address] [place] [address] China Martinez, PT [address] [facility] [address] [place], [place] [address] 11/17/2024 9:30 AM EDT Treatment [facility] [address] [facility] [address] [place] [address] China Martinez, PT [address] [address] 11/19/2024 10:00 AM EDT Treatment [facility] [address] [facility] [address] [place] [address] China Martinez, PT [address] [id number] 02/16/2025 9:00 AM EDT Office Visit [facility] [address] [facility] [address] [place] [address] Maribell Bland APRN [address] [facility] [address] [place] [address] 02/17/2025 8:00 AM EDT Consult [facility] Endocrinology [place] [address] [facility] [address] [place] [address] Maribell Bland, PERSONNEL REPRESENTATIVE [address] [facility] [address] [place] [address] Irma Cabrera MD [address] [facility] [address] [place] [address] Health Maintenance Due Date Last Done Comments HIV Screening 1976 Annual Wellness Visit 1981 Pneumococcal Vaccines 50+ (1 of 2 - PCV) 1982 Pap Smear (Ages 21-65) 1984 Colonoscopy 2008 Zoster (Shingles) Vaccine (1 of 2) 2013 Physical 08/29/2023 08/29/2022 RSV Vaccine 60 years and older and Patients (1 - Risk 60-74 years 1-dose series) 2023 Influenza Vaccine 04/09/2024 COVID-19 Vaccine ( season) 2024 12/28/2020, 12/07/2020 Foot Exam 10/24/2024 10/24/2023, 08/09, 08/24/2021, Additional history exists Mammogram 12/20/2024 12/20/2022 (Prev iously Completed), 12/15/2021 Hemoglobin A1C 04/13/2025 10/14/2024, 07/10, 05/04/2024, Additional history exists Ophthalmology Exam 07/01/2025 07/01/2024 Creatinine with GFR 07/23/2025 07/23/2024, 10/25/2023, 08/24/2022, Additional history exists Lipid Panel 07/23/2025 07/23/2024, 10/10, 04/01/2023, Additional history exists Microalbumin/Creatinine Ratio Urine 07/23/2025 07/23/2024, 05/04/2024, 08/24/2022, Additional history exists DTaP/Tdap/Td Vaccines (2 - Td or Tdap) 06/28/2026 06/28/2016 Hepatitis C Virus Screening Completed 08/24/2021 Hepatitis B Vaccines Aged Out No long er eligible based on patient's age to complete this topic Goals Goal Patient Goal Type Associated Problems Recent Progress Patient-Stated? Author PT STGs Physical Therapy No China Martinez, PT Note: In 4 wks... Pt with knee flexion ROM >/=90deg Pt with highest pain <7/10 Pt with knee extension ROM </=5deg Pt with good quad activation in quad set PT LTGs Physical Therapy No China Mratinez, PT Note: In 10 wks... Pt with knee ROM 0-120deg Pt with resting pain <2/10 Pt will be able to STS transfer without UE support and equal LE loading. Pt will be able to ascend/descend stairs x3 steps without pain in reciprocal pattern Pt with normalized gait Procedures Procedure Name Priority Date/Time Associated Diagnosis Comments POCT GLYCOSYLATED HEMOGLOBIN (HGB A1C) Routine 10/14/2024 12:16 PM EST Type II diabetes mellitus with neurological manifestations (HCC) MICROALBUMIN, CREATININE, URINE, RANDOM Routine 07/23/2024 11:23 AM EST Type II diabetes mellitus with neurological manifestations (HCC) LIPID PANEL REFLEX DIRECT LDL Routine 07/23/2024 11:23 AM EST Type II diabetes mellitus with neurological manifestations (HCC) COMPREHENSIVE METABOLIC PANEL Routine 07/23/2024 11:23 AM EST Type II diabetes mellitus with neurological manifestations (HCC) HX OPHTHALMOLOGY TESTING PROCEDURES Routine 07/01/2024 7:41 AM EDT IMAGING BREAST/BX/MAMMO 12/15/2021 HEPATITIS C VIRUS (HCV) ANTIBODY Routine 08/24/2021 12:07 PM EST from Last 3 Months or Most Recently Relevant to Health Maintenance Results * (ABNORMAL) POCT Glycosylated Hemoglobin (Hb A1C) (10/14/2024 12:16 PM EST) Pathologist [facility] Hemoglobin A1C 6.6(A) 4.0 - 6.0 % Lot Number [id number] Materials Scheduler Pass Pass Blood 10/14/2024 12:1 6 PM EST Maribell Bland APRN POINT OF CARE TEST O RDERABLES * (ABNORMAL) Lipid Panel Reflex Direct LDL (07/23/2024 11:23 AM EST) Cholesterol, Total 130 <200 mg/dL [facility] Cholesterol, HDL 42(L) > OR = 50 mg/dL [facility] Triglycerides 126 <150 mg/dL [facility] LDL Cholesterol 67 mg/dL (calc) [facility] Comment: Reference range: <100 Desirable range <100 mg/dL for primary prevention; ?? <70 mg/dL for patients with CHD or diabetic patients with > or = 2 CHD risk factors. LDL-C is now calculated using the Mauricio calculation, which is a validated novel method providing better accuracy than the Friedewald equation in the estimation of LDL-C. Robert SS et al. JYOTSNA. 2013;310(19): 5848-1484 (http://education.[employer]/faq/PDB608) Cholesterol/HDL Ratio 3.1 <5.0 (calc) [facility] Non HDL Chol. (LDL+VLDL) 88 <130 mg/dL (calc) [facility] Comment: For patients with diabetes plus 1 major ASCVD risk factor, treating to a non-HDL-C goal of <100 mg/dL (LDL-C of <70 mg/dL) is considered a therapeutic option. Blood 07/23/2024 11:2 3 AM EST 07/23/2024 11:24 AM EST Narrative [facility] - 07/24/2024 2:24 PM EST FASTING:YES FASTING: YES Maribell Bland APRN LAB BLOOD ORDERABLES Performing Organization Address City/State/[facility] Co de Phone Number [employer] [address] [place] [phone] * Microalbumin, Creatinine, Urine, Random (07/23/2024 11:23 AM EST) Creatinine, Urine, Random 206 20 - 275 mg/dL [facility] Microalbumin, Urine, Random 5.2 See Note: mg/dL [facility] Comment: Reference Range: Reference Range Not established Microalbumin/Creat inine Ratio 25 <30 mg/g creat [facility] Comment: The ADA defines abnormalities in albumin excretion as follows: Albuminuria Category ?Result (mg/g creatinine) Normal to Mildly increased ?? <30 Moderately increased ? 30-299 Severely increased ? > OR = 300 The ADA recommends that at least two of three specimens collected within a 3-6 month period be abnormal before considering a patient to be within a diagnostic category. Urine Voided urine specimen / Unknown 07/23/2024 11:23 AM EST 07/23/2024 11:24 AM EST Narrative [facility] - 07/24/2024 2:24 PM EST FASTING:YES FASTING: YES Maribell Bland UMANG URINE ORDERABLES [facility] [address] [place] [phone] * Comprehensive Metabolic Panel (07/23/2024 11:23 AM EST) Glucose 87 65 - 99 mg/dL [facility] Comment: ? Fasting reference interval Blood Urea Nitrogen (BUN) 11 7 - 25 mg/dL [facility] Creatinine 0.77 0.50 - 1.05 mg/dL [facility] Creatinine w/ eGFR 88 > OR = 60 mL/min/1. 73m2 [facility] BUN/Creatinine Ratio SEE NOTE: 6 (calc) [facility] Comment: ?? Not Reported: BUN and Creatinine are within ?? reference range. ? Sodium 142 135 - 146 mmol/L [facility] Potassium 4.4 3.5 - 5.3 mmol/L [facility] Chloride 104 98 - 110 mmol/L [facility] CO2 27 20 - 32 mmol/L [facility] Calcium 9.9 8.6 - 10.4 mg/dL [facility] Protein, Total 7.2 6.1 - 8.1 g/dL [facility] Albumin 4.4 3.6 - 5.1 g/dL [facility] Globulin 2.8 1.9 - 3.7 g/dL (calc) [facility] Albumin/Globuli n Ratio 1.6 1.0 - 2.5 (calc) [facility] Bilirubin, Total 0.3 0.2 - 1.2 mg/dL [facility] Alkaline Phosphatase 49 37 - 153 U/L [facility] Aspartate Aminotrans (AST) 17 10 - 35 U/L [facility] Alanine Aminotrans (ALT) 17 6 - 29 U/L [facility] Blood 07/23/2024 11:2 3 AM EST 07/23/2024 11:24 AM EST Narrative [facility] - 07/24/2024 2:24 PM EST FASTING:YES FASTING: YES Maribell Bland UMANG LAB BLOOD ORDERABLES [facility] [address] [place] [phone] * OPHTHALMOLOGY TESTING PROCEDURES (07/01/2024 7:41 AM EDT) Scan Ophthalmology HX AMB PROCEDURES * IMAGING BREAST/BX/MAMMO (12/15/2021) Anatomical Region Laterality Modality Other 12/15/2021 Narrative 12/15/2021 Ordered by an unspecified provider. Generic Provider IMG LEGACY PROCEDURE S * Hepatitis C Virus (HCV) Antibody (08/24/2021 12:07 PM EST) Hepatitis C Antibody NON-REACT SEKOU NON-REACT SEKOU [facility] Hepatitis C Antibody (s/co) 0.01 <1.00 [facility] Comment: HCV antibody was non-reactive. There is no laboratory evidence of HCV infection. In most cases, no further action is required. However, if recent HCV exposure is suspected, a test for HCV RNA (test code 99439) is suggested. For additional information please refer to http://education.[employer]/faq/VQJ64x0 (This link is being provided for informational/ educational purposes only.) 08/24/2021 12:0 7 PM EST 08/24/2021 12:08 PM EST Narrative [facility] - 08/25/2021 6:04 PM EST FASTING:YES FASTING: YES Maribell Bland UMANG LAB BLOOD ORDERABLES [facility] [address], [place] [address] from Last 3 Months or Most Recently Relevant to Health Maintenance Care Teams Barrel Assembly Inspector Relationship Specialty Start Date End Date Maribell BlandUMANG [address] [place] [address] PCP - General Family Medicine 06/06/21 Vianca Golden MD [address] [place] [address] PCP - [employer] Medicare Attributed 04/09/24 Roberth Dee OD [phone] [place] [address] Optometry 09/15/24
--- OUTSIDE RECORDS SUMMARY | 2024-11-04 17:22 | XMS_ITS | Encounter Summary ---
Author Organization Formerly [facility] Address [address] [place] [address] Care Team Providers Care Quality Compliance Coordinator Name Role Phone Maribell Bland APRN Primary Care Provider [phone] Vianca Golden MD Unavailable [phone] Roberth Dee OD Unavailable [phone] Reason for Visit * Reason Comments PT Treatment * Rehabilitation (Routine) - Authorized Specialty Diagnoses / Procedures Referred By Contact Referred To Contact Physical Therapist / Rehabilitation Diagnoses Bilateral post-traumatic osteoarthritis of knee Pete Macias MD [address] [address] [facility] [address] [place] [address] Referral ID Status Reason Start Date Expiration Date Visits Requested Visits Authorized [id number] Authorized Support Services 09/09/2024 09/08/2025 200 200 Encounter Details Date Type Department Care Team (Late st Contact Info) Description 10/23/2024 10:30 AM EST Treatment [facility] [address] [facility] [address] [place] [address] System, Provider Not In China Martinez, PT [address] [address] Bilateral post-traumatic osteoarthritis of knee (Primary Dx); Chronic pain of left knee; Derangement of lateral meniscus of left knee; Difficulty walking Social History Tobacco Use Types Packs/Day Years Used Date Smoking Tobacco: Never Smokeless Tobacco: Never Alcohol Use Standard Drinks/Week Comments Yes 0 (1 standard drink = 0.6 oz pur e alcohol) rare [facility] Utilities Answer Date Recorded In the past [...] and Family Not on file 10/12/2024 Attends [employer] Not on file 10/12 Active Member [...] [facility] time in the [facility], were you homeless or living in a fdc (including now)? Patient declined 10/12/2024 Sex and Gender Information Value Date Recorded Sex Assigned at Female 02/07/2023 12:20 PM EDT Gender Identity Female 02/07/2023 12:20 PM EDT Sexual Orientation Choose not to disclose 2022 12:20 PM EDT documented as of this encounter Miscellaneous Notes * Daily/Treatment Note - Chinasindy Martinez, PT - 10/23/2024 11:10 AM EST Physical Therapy Daily Note Diagnoses ICD-10-CM 1. Bilateral post-traumatic osteoarthritis of knee M17.2 2. Chronic pain of left knee M25.562 G89.29 3. Derangement of lateral meniscus of left knee M23.301 4. Difficulty walking R26.2 Interpretation Services: Subjective: Daily Note Subjective - SatOctober 23, 2024 Row Name Treatment from 10/23/2024 in [facility] Subjective Subjective Pt had the flu then fell d/t exhaustion as she was recovering from it; she isn't sure how she fells, but her knees L>R hurt afterward, and she's had trouble bending Treatment Performed: Interventions - SatOctober 23, 2024 Row Name Treatment from 10/23/2024 in [facility] Manual therapy Justification to decrease spasm and pain;to increase capsular ROM and decrease pain 1 STM to quads, DFM to patellar tendon 5' 2 Patellar mobes superior 3' Therapeutic Procedures Justification to increase range of motion, strength and endurance 3 SAQ on bolster on L w/ 2# AW 2x10 5 long sitting heel slide on KneeGlide x20 6 LAQ 2x10 (10 today) 14 seated gastroc stretch c strap 2x10 Modalities - SatOctober 23, 2024 Row Name Treatment from 10/23/2024 in [facility] Modality Treatment Additional Documentation Cryotherapy Cryotherapy Justification Cold pack applied for pain mgm Patient position supine;sitting Pre Treatment Observation no significant skin abnormalities Applied to L knee Applied post treatment Duration (minutes) 10 Post Treatment Observation no adverse skin reaction Assessment/ Plan: Daily Assessment and Plan - SatOctober 23, 2024 Row Name Treatment from 10/23/2024 in [facility] Assessment/ Plan Assessment Improved tolt o exercise after manual; pt reporting flexion hasn't felt this good since the fall. Pt still has limited tolerance but was able to do more than she expected No bruising noted, but mild swellin in medial knee on L Plan Continue progression of gentle strengthening Objective Measurements: documented in this encounter Plan of Treatment Upcoming Encounters Date Type Department Care Team (Late st Contact Info) Description 11/05/2024 10:00 AM EST Treatment [facility] [address] [place] [address] System, Provider Not In China Martinez, PT [address] [address] 11/10/2024 11:30 AM EST Treatment [facility] [address] [place] [address] China Martinez, PT [address], [place] [address] 11/12/2024 10:00 AM EST Treatment [facility] [address] [place] [address] China Martinez, PT 1559 [facility] 2 [place], [place] [address] 11/17/2024 9:30 AM EDT Treatment [facility] [address] [place] [address] China Martinez, PT [address] [place] [address] 11/19/2024 10:00 AM EDT Treatment [facility] [place] [address] [place] [address] China Martinez, PT [address] [facility] 2 [place] [address] 02/16/2025 9:00 AM EDT Office Visit [facility] [address] [place] [address] Maribell Bland LIVESTOCK HANDLER [address] [place] [address] 02/17/2025 8:00 AM EDT Consult [facility] Endocrinology [place] [address] [place] [address] Maribell Bland, LIVESTOCK HANDLER [address] [place] [address] Irma Cabrera MD [address] [place] [address] documented as of this encounter Goals Goal Patient Goal Type Associated Problems Recent Progress Patient-Stated? Author PT STGs Physical Therapy China Salamanca, PT Note: In 4 wks... Pt with knee flexion ROM >/=90deg Pt with highest pain <7/10 Pt with knee extension ROM </=5deg Pt with good quad activation in quad set PT LTGs Physical Therapy China Salamanca, PT Note: In 10 wks... Pt with knee ROM 0-120deg Pt with resting pain <2/10 Pt will be able to STS transfer without UE support and equal LE loading. Pt will be able to ascend/descend stairs x3 steps without pain in reciprocal pattern Pt with normalized gait documented as of this encounter Visit Diagnoses Diagnosis Bilateral post-traumatic osteoarthritis of knee- Primary Chronic pain of left knee Derangement of lateral meniscus of left knee Difficulty walking Difficulty in walking documented in this encounter Care Teams Quality Compliance Coordinator Relationship Specialty Start Date End Date Baldo Maribell [place] [address] [place] [address] PCP - General Family Medicine 06/06/21 Vianca Golden MD [address] [place], [place] [address] PCP - [employer] Medicare Attributed 04/09/24 Roberth Dee OD [address] [place] [address] Optometry 09/15/24 documented as of this encounter
--- OUTSIDE RECORDS SUMMARY | 2024-11-04 17:22 | XMS_ITS | Encounter Summary ---
Author Organization [facility] Address [address] [place] [address] Care Team Providers Care Ribbon Blocker Name Role Phone Maribell Bland APRN Primary Care Provider [phone] Vianca Golden MD Unavailable [phone] Roberth Dee OD Unavailable [phone] Encounter Details Date Type Department Care Team (Late Contact Info) Description 06/02/[address] [facility] [address] [place] [address] Maribell Bland APRN [address] [place] [address] Social History Tobacco Use Types Packs/Day Years Used Date Smoking Tobacco: Never Smokeless Tobacco: Never Alcohol Use Standard Drinks/Week Comments Yes 0 (1 standard drink = 0.6 oz pur e alcohol) rare PHQ-2 Answer Date Recorded PHQ-2 Total Score 0 10/24/2023 Sex and Gender Information Value Date Recorded Sex Assigned at Female 02/07/2023 12:20 PM EDT Gender Identity Female 02/07/2023 12:20 PM EDT Sexual Orientation Choose not to disclose 2022 12:20 PM EDT documented as of this encounter Plan of Treatment Upcoming Encounters Date Type Department Care Team (Late Contact Info) Description 11/05/2024 10:00 AM EST Treatment [facility] [address] [place] [address] System, Provider Not In China Martinez, PT [address], [place] [address] 11/10/2024 11:30 AM EST Treatment [facility] [address] [place] [address] China Martinez, PT [address] [place] [address] 11/12/2024 10:00 AM EST Treatment [facility] [address] [place] [address] China Martinez, PT [address], [place] [address] 11/17/2024 9:30 AM EDT Treatment [facility] [address] [place] [address] China Martinez, PT [address] [place] [address] 11/19/2024 10:00 AM EDT Treatment [facility] [address] [place] [address] China Martinez, PT [address], [place] [address] 02/16/2025 9:00 AM EDT Office Visit [facility] [address] [place] [address] Ignacio, Maribell A, HOUSEHOLD APPLIANCES SERVICE TECHNICIAN [address] [place] [address] 02/17/2025 8:00 AM EDT Consult [facility] Endocrinology [place] [address] [place] [address] Baldo, Maribell Park, HOUSEHOLD APPLIANCES SERVICE TECHNICIAN [address] [place] [address] Irma Cabrera MD [address] [place] [address] documented as of this encounter Visit Diagnoses Not on filedocumented in this encounter Care Teams Ribbon Blocker Relationship Specialty Start Date End Date Maribell Bland, HOUSEHOLD APPLIANCES SERVICE TECHNICIAN [address] [facility] [address] [place] [address] PCP - General Family Medicine 06/06/21 Vianca Golden MD [address] [place] [address] PCP - [employer] Medicare Attributed 04/09/24 Roberth Dee OD [address] [place] [address] Optometry 09/15/24 documented as of this encounter
--- OUTSIDE RECORDS SUMMARY | 2024-11-04 17:22 | XMS_ITS | Encounter Summary ---
Author Organization [facility] Address [address] [place] [address] Care Team Providers Care Grounding Engineer Name Role Phone Maribell Bland APRN Primary Care Provider [phone] Vianca Golden MD Unavailable [phone] Roberth Dee OD Unavailable [phone] Encounter Details Date Type Department Care Team (Late Contact Info) Description 01/24/2023 Scanned Document [facility] PRIMARY CARE SCAN Primary Care, Scan Social History Tobacco Use Types Packs/Day [...] suspected to have Coronavirus/COVID-19? No / Unsure 01/22/2023 12:50 PM EDT documented as of this encounter Plan of Treatment Upcoming Encounters Date Type Department Care Team (Late Contact Info) Description 11/05/2024 10:00 AM EST Treatment [facility] [address] [place] [address] System, Provider Not In China Martinez, PT [address] [facility] 2 [place] [address] 11/10/2024 11:30 AM EST Treatment [facility] [address] [place] [address] China Martinez, PT [address] [facility] 2 [place] [address] 11/12/2024 10:00 AM EST Treatment [facility] [address] [place] [address] China Martinez, PT [address] [place] [address] 11/17/2024 9:30 AM EDT Treatment [facility] [address] [place] [address] China Martinez, PT [address] [place] [address] 11/19/2024 10:00 AM EDT Treatment [facility] [address] [place] [address] China Martinez, PT [address] [place] [address] 02/16/2025 9:00 AM EDT Office Visit [facility] [address] [place] [address] Maribell Bland APRN [address] [place] [address] 02/17/2025 8:00 AM EDT Consult [facility] Endocrinology [place] [address] [place] [address] [place] [address] Maribell Bland, UMANG [address] [facility] 101 [place] [address] Irma Cabrera MD [address] [address] documented as of this encounter Visit Diagnoses Not on filedocumented in this encounter Care Teams Grounding Engineer Relationship Specialty Start Date End Date Maribell Bland, UMANG [address] [facility] [address] [place] [address] PCP - General Family Medicine 06/06/21 Vianca Golden MD [address] [place] [address] PCP - [employer] Medicare Attributed 04/09/24 Roberth Dee OD [address] [place] [address] Optometry 09/15/24 documented as of this encounter
--- OUTSIDE RECORDS SUMMARY | 2024-11-04 17:22 | XMS_ITS | Encounter Summary ---
Author Organization [facility] Address [address] [place] [address] Care Team Providers Care Online Merchandiser Name Role Phone Maribell Bland APRN Primary Care Provider [phone] Vianca Golden MD Unavailable [phone] Roberth Dee OD Unavailable [phone] Reason for Visit * Reason Comments Medication Refill Encounter Details Date Type Department Care Team (Late Contact Info) Description 03/02/2022 Refill [facility] 100 [facility] [address] [place] [address] Maribell Bland APRN [address] [place] [address] Type II diabetes mellitus with neurological manifestations (HCC) Social History Tobacco Use Types Packs/Day Years [...] Info) Description 11/05/2024 10:00 AM EST Treatment [facility] [address] [place] [address] System, Provider Not In China Martinez, PT [address], [place] [address] 11/10/2024 11:30 AM EST Treatment [facility] [address] [place] [address] China Martinez, PT [address] [place] [address] 11/12/2024 10:00 AM EST Treatment [facility] [address] [place] [address] China Martinez, PT [address], [place] [address] 11/17/2024 9:30 AM EDT Treatment [facility] [address] [facility] [address] [place] [address] China Martinez, PT [address] [place] [address] 11/19/2024 10:00 AM EDT Treatment [facility] [address] [place] [address] China Martinez, PT [address], [place] [address] 02/16/2025 9:00 AM EDT Office Visit [facility] [address] [place] [address] Maribell Bland APRN [address] [place] [address] 02/17/2025 8:00 AM EDT Consult [facility] Endocrinology [place] [address] [place] [address] [place] BayMar[place]ell, LIAISON PLANNER [address] [facility] 101 [place] [address] Irma Cabrera MD [address] [facility] 101 [place] [address] documented as of this encounter Visit Diagnoses Diagnosis Type II diabetes mellitus with neurological manifestations (HCC) Type II or unspecified type diabetes mellitus with neurological manifestations, not stated as uncontrolled documented in this encounter Care Teams Online Merchandiser Relationship Specialty Start Date End Date Maribell Bland, LIAISON PLANNER [address] [facility] 101 [place] [address] PCP - General Family Medicine 06/06/21 Vianca Golden MD [address] [place] [address] PCP - [employer] Medicare Attributed 04/09/24 Roberth Dee OD [address] [place] [address] Optometry 09/15/24 documented as of this encounter
--- OUTSIDE RECORDS SUMMARY | 2024-11-04 17:22 | XMS_ITS | Clinical Summary ---
Author Organization [facility] Address [address] [place] [address] Care Team Providers Care Steno Pool Supervisor Name Role Phone Hazel Slater APRN Primary Care Provider + Allergies Active Allergy Reactions Criticality Noted Date Comments Nka 01/13/2015 Medications Medication Sig Dispensed Refills Start Date End Date Status aspirin 325 MG tablet Take by mouth. 0 10/24/2012 Active amlodipine-olmesart an (CORINNA) 5-20 MG per tablet Take by mouth. 0 01/12/2013 Active ziprasidone (GEODON) 40 MG capsule Take by mouth. 0 10/24/2012 Active glucagon (GLUCAGON EMERGENCY) 1 MG injection Glucagon Emergency 1 MG Injection Kit USE DIRECTED for hypoglycemia- NOTIFY OFFICE [phone] if this was required Quantity: 1; Refills: 1 Therese Rodrigez APRN; Started 17-Dec-2013 Active 0 12/17/2013 Active sitaGLIPtin (JANUVIA) 100 MG tablet Take by mouth. 0 07/27/2014 Active omega-3 acid ethyl esters (LOVAZA) 1 G capsule Take by mouth. 0 Active magnesium oxide (MAG-OX) 400 MG tablet Take by mouth. 0 10/24/2012 Active metFORMIN (GLUCOPHATE-XR) 500 MG 24 hr tablet Take by mouth. 0 07/27/2014 Activ e Insulin Aspart (NOVOLOG FLEXPEN) 100 UNIT/ML SOPN Inject under the skin. 0 08/26/2014 Active Vitamin D, Ergocalciferol, 54535 UNITS CAPS Take by mouth. 0 Acti ve Multiple Vitamin (MULTIVITAMINS PO) Take by mouth. 0 10/24/2012 Ac tive Lancets (ONETOUCH ULTRASOFT) lancets OneTouch UltraSoft Lancets Miscellaneous test 4-6 times daily Quantity: 4; Refills: 1 Thersee Rodrigez APRN; Started 24-Oct-2012 [id number] EA Box 0 10/24/2012 Active glucose blood (ONE TOUCH ULTRA TEST) test strip OneTouch Ultra Blue In Vitro Strip TEST BLOOD GLUCOSE 4 TIMES DAILY as directed,extra required to check if symptoms of hypoglycemia Quantity: 400; Refills: 1 Therese Rodrigez APRN; Started 24-Oct-2012 Active 0 10/24/2012 Active Insulin Detemir (LEVEMIR FLEXPEN) 100 UNIT/ML SOPN Levemir FlexPen 100 UNIT/ML SOLN 80 Units twice a day Refills: 0 Therese Rodrigez APRN; Started 13-Oct-2012 Active 0 10/13/2012 Active Insulin Pen Needle (B-D ULTRAFINE III SHORT PEN) 31G X 8 MM MISC BD Pen Needle Short U/F 31G X 8 MM Miscellaneous USE DIRECTED. use with insulin 4-5 times a day Quantity: 5; Refills: 2 Therese Rodrigez APRN; Started 24-Oct-2012 [id number] Miscellaneous Box 0 10/24/2012 Active Active Problems Problem Noted Date Diagnosed Date Insulin dependent type 2 diabetes mellitus, cont rolled 01/14/2015 Insulin long-term use 01/14/2015 Severe obesity (BMI >= 40) 01/14/2015 Acquired acanthosis nigricans 01/13/2015 Type II diabetes mellitus with renal manifestati ons 01/13/2015 Type II diabetes mellitus with neurological magnolia festations 01/13/2015 High blood pressure 01/13/2015 Hypercholesterolemia 01/13/2015 Dysmetabolic syndrome X 01/13/2015 Extreme obesity 01/13/2015 Type II diabetes mellitus, uncontrolled 01/14/20 15 Family History Medical History Relation Name Comments Breast cancer Neg Hx Colon cancer Neg Hx Endometrial cancer Neg Hx Ovarian cancer Neg Hx Social History Tobacco Use Types Packs/Day Years Used Date Smoking Tobacco: Former Cigarettes 0.5 5 Alcohol Use Standard Drinks/Week Comments Not Asked 0 (1 standard drink = 0.6 oz pur e alcohol) Sex and Gender Information Value Date Recorded Sex Assigned at Not on file Gender Identity Not on file Sexual Orientation Not on file Job Start Date Occupation Industry Not on file Not on file Not on file Last Filed Vital Signs Vital Sign Reading Time Taken Comments Blood Pressure 137/84 01/14/2015 8:10 AM EDT Pulse 89 01/14/2015 8:10 AM EDT Temperature - - Respiratory Rate - - Oxygen Saturation - - Inhaled Oxygen Concentration - - Weight 131.1 kg (289 lb) 01/14/2015 8:10 AM EDT Height 170.2 cm (5' 7 ) 01/14/2015 8:10 AM EDT Body Mass Index 45.26 01/14/2015 8:10 AM EDT Plan of Treatment Health Maintenance Due Date Last Done Comments Hepatitis C Screening 1965 COVID-19 Vaccine (#1) 05/02/1964 Pneumococcal Vaccine (1 of 2 - PCV) 1969 Depression Screening 1975 Preventative Health Evaluation 1981 DTap / Tdap / Td (1 - Tdap) 1982 Cervical Cancer Screening (Pap Smear) 1984 Colon Cancer Screening (Colonoscopy) 2008 Shingrix-Zoster Vaccine (1 o f 2) 2013 RSV Adult > 60+ Yrs or (1 - Risk 60-74 years 1-dose series) 2023 Influenza Vaccine (#1) 2024 Breast Cancer Screening (Mammogram) 12/20/2024 12/20/2022, 12/15/2021, 07/05/2016 Hepatitis B Vaccines Aged Out No long er eligible based on patient's age to complete this topic RSV Ped < 20 months Aged Out No longe r eligible based on patient's age to complete this topic Care Teams Steno Pool Supervisor Relationship Specialty Start Date End Date Hazel Slater APRN PCP - General Steam Shovel Engineer 01/13/15
--- OUTSIDE RECORDS SUMMARY | 2024-11-04 17:22 | XMS_ITS | Encounter Summary ---
Author Organization [facility] Address [address] [place] [address] Care Team Providers Care Open Shank Coverer Name Role Phone Pcp, No Primary Care Provider Unavailabl e Maribell Bland APRN Primary Care Provider [phone] Vianca Golden MD Unavailable [phone] Roberth Dee OD Unavailable [phone] Encounter Details Date Type Department Care Team (Latest Contact Info) Description 09/29/2020 Lab Requisition [facility] [address] Through [address] [place] [address] [address] [place] [address] Da Mosley MD [address] [place] [address] Encounter for laboratory testing for COVID-19 virus Social History Tobacco Use Types Packs/Day Years Used Date Smoking Tobacco: Never Smokeless Tobacco: Never Sex and Gender Information Value Date Recorded Sex Assigned at Female 02/07/2023 12:20 PM EDT Gender Identity Female 02/07/2023 12:20 PM EDT Sexual Orientation Choose not to disclose 2022 12:20 PM EDT documented as of this encounter Plan of Treatment Upcoming Encounters Date Type Department Care Team (Late st Contact Info) Description 11/05/2024 10:00 AM EST Treatment [facility] [address] [place] [phone] System, Provider Not In China Martinez, PT [address] [facility] 2 [place] [address] 11/10/2024 11:30 AM EST Treatment [facility] [address] [place] [address] China Martinez, PT [address] [facility] 2 [place] [address] 11/12/2024 10:00 AM EST Treatment [facility] [address] [place] [address] China Martinez, PT [address] [facility] 2 [place] [address] 11/17/2024 9:30 AM EDT Treatment [facility] [address] [place] [address] China Martinez, PT [address] [place] [address] 11/19/2024 10:00 AM EDT Treatment [facility] [address] [place] [address] China Martinez, PT [address] [facility] 2 [place] [address] 02/16/2025 9:00 AM EDT Office Visit [facility] [address] [place] [address] Maribell Bland APRN [address] [place] [address] 02/17/2025 8:00 AM EDT Consult [facility] Endocrinology [place] [address] [place] [address] Baldo Maribell [place] [address] [place] [address] Irma Cabrera MD [address] [place] [address] documented as of this encounter Procedures Procedure Name Priority Date/Time Associated Diagnosis Comments COVID-19 (SARS-COV-2) - [facility] Routine 09/29/2020 1:11 PM EST Encounter for laboratory testing for COVID-19 virus [ICD-10-CM] documented in this encounter Results * COVID-19 (SARS-COV-2) ([facility]) (09/29/2020 1:11 PM EST) COVID-19 RT-PCR NOT-DETEC SEB Not-Detec seb 09/30/2020 5:38 PM EST [facility] Comment:Interpretation: The viral RNA was not detected, making the COVID-19 diagnosis less likely. Clinical correlation is highly recommended.Final report signed by Frank Tinoco, Ph.D., Laboratory DirectorTests performed at [facility] Nasopharyngeal swab / Unknown 09/29/2020 1:11 PM EST 09/29/2020 1:11 PM EST Narrative [facility] - 09/30/2020 5:38 PM EST Performed by [facility] [address] [place] [id number], CLIA# [id number] and [place] License# [id number] Da Mosley MD MICROBIOLOGY - GENER AL ORDERABLES TRAY BASSEM Simone SILVA documented in this encounter Visit Diagnoses Diagnosis Encounter for laboratory testing for COVID-19 virus documented in this encounter Care Teams Open Shank Coverer Relationship Specialty Start Date End Date Pcp, No PCP - General General Medicine 04/18/20 06/05/21 Maribell Bland APRN [address] [place] [address] PCP - General Family Medicine 06/06/21 Vianca Golden MD [address] [place] [address] PCP - [employer] Medicare Attributed 04/09/24 Roberth Dee OD [address] [place] [address] Optometry 09/15/24 documented as of this encounter
--- OUTSIDE RECORDS SUMMARY | 2024-11-04 17:22 | XMS_ITS | Encounter Summary ---
Author Organization [facility] Address [address] [place] [address] Care Team Providers Care Call Worker Person Name Role Phone BaldoMaribell APRN Primary Care Provider [phone] Vianca Golden MD Unavailable [phone] Roberth Dee OD Unavailable [phone] Encounter Details Date Type Department Care Team (Latest Contact Info) Description 10/14/2024 Travel Social History Tobacco Use Types Packs/Day Years Used Date Smoking Tobacco: Never Smokeless Tobacco: Never Alcohol Use Standard Drinks/Week Comments Yes 0 (1 standard drink = 0.6 oz pur e alcohol) rare [facility] Utilities Answer Date Recorded In [...] any time in the past 12 m [facility], were you homeless or living in a halfway (including now)? Patient declined 10/12/2024 Sex and Gender Information Value Date Recorded Sex Assigned at Female 02/07/2023 12:20 PM EDT Gender Identity Female 02/07/2023 12:20 PM EDT Sexual Orientation Choose not to disclose 2022 12:20 PM EDT documented as of this encounter Plan of Treatment Upcoming Encounters Date Type Department Care Team (Late st Contact Info) Description 11/05/2024 10:00 AM EST Treatment [facility] [address] [facility] 204 [place] [address] System, Provider Not In China Martinez, PT [address] [address] 11/10/2024 11:30 AM EST Treatment [facility] [address] [place] [address] Michelle China, PT [address], [place] [address] 11/12/2024 10:00 AM EST Treatment [facility] [address] [place] [address] Michelle China, PT [address] [place] [address] 11/17/2024 9:30 AM EDT Treatment [facility] [address] [place] [address] MichelleCapriceChina, PT [address] [place] [address] 11/19/2024 10:00 AM EDT Treatment [facility] [address] [place] [address] MichelleChina, PT [address] [place] [address] 02/16/2025 9:00 AM EDT Office Visit [address] [place] [address] Maribell Bland, ROTOR CASTING MACHINE SETUP OPERATOR [address] [facility] 101 [place] [address] 02/17/2025 8:00 AM EDT Consult [facility] [address] [facility] [address] [place] [address] Maribell Bland, ROTOR CASTING MACHINE SETUP OPERATOR [address] [facility] [address] [place] [address] Irma Cabrera MD [address] [place] [address] documented as of this encounter Goals Goal [...] on filedocumented in this encounter Care Teams Call Worker Person Relationship Specialty Start Date End Date Maribell Bland APRN [address] [place] [address] PCP - General Family Medicine 06/06/21 Vianca Golden MD [address] [place] [phone] PCP - [employer] Medicare Attributed 04/09/24 Roberth Dee OD [address] [place] [address] Optometry 09/15/24 documented as of this encounter
--- OUTSIDE RECORDS SUMMARY | 2024-11-04 17:22 | XMS_ITS | Patient Health Record ---
Author Organization [facility] [facility] Address [address] [place] [id number] Care Team Providers Care Library Sales Consultant Name Role Phone ALINA EL APRN Primary Care Provider LAURA Parekh Unavailable [phone] Allergies Allergen (clinical drug ingredient) Drug/Non Drug Allergy documented on EMR Reaction Allergy Type Onset Date Status penicillin Unknown Drug Allergy Active Reason For Referral No Information Medications Medication SIG (Take, Route, Frequency, Duration) Notes Start Date End Date Status amLODIPine 5 mg 1 tab(s) orally once a day for 30 day(s) Active Ozempic 2 mg/1.5 mL (0.25 mg or 0.5 mg dose) as directed subcutaneously once a week Active atenolol 25 mg 1 tab(s) orally once a day for 30 day(s) Active multivitamin 1 tab once a day Active Tresiba 100 units/mL as directed subcuta neously once a day Active aspirin 81 mg 1 tab(s) orally once a day for 30 day(s) Active Problems Problem Type SNOMED Code ICD Code Onset Dates Problem Status W/U Status Risk Notes Problem Post-traumati c gonarthrosis, bilateral ([id number]) Bilateral post-traumatic osteoarthritis of knee (M17.2) Active confirmed Vital Signs Height 66 in 08/13/2024 Weight 215 lbs 08/13/2024 BMI 34.7 kg/m2 08/13/2024 Encounters Encounter Location Date Provider Diagnosis [facility] [address] [place] [id number] 08/13/2024 LAURA MILLER Bilateral post-traumatic osteoarthritis of knee M17.2 and Tear of articular cartilage of left knee, current, initial encounter S83.32XA Assessments Encounter Date Diagnosis (ICD Code) Assessment Notes Treatment Notes Treatment Clinical Notes Section Notes 08/13/2024 Bilateral post-traumatic osteoarthritis of knee (ICD-10 - M17.2) The risks, benefits and alternatives to an injection were explained. The patient had the skin cleansed with betadine and alcohol and the injection was placed under sterile conditions. .Medication was placed under sterile condition and with verbal consent. We will also move forward with some physical therapy. 08/13/2024 Tear of articular cartilage of left knee, current, initial encounter (ICD-10 - S83.32XA) Plan Of Treatment No Information Insurance Providers Payer Name Payer Address Payer Phone Subscriber Number Group Number Insured Name Patient Relationship to Insured Coverage Start Date Coverage End Date [employer] MEDICARE OPEN PLAN [address] [place] [phone] [id number] MONIKA GUILLEN Self - patient is the insured Medical (General) History Medical History History ICD Code Anemia Asthma Blood Clots Diabetes Irregular Heartbeat High Blood Pressure High Cholesterol Arthritis Malignant hyperthermia
--- OUTSIDE RECORDS SUMMARY | 2024-11-04 17:22 | XMS_ITS | Encounter Summary ---
Author Organization [facility] Address [address] [place] [address] Care Team Providers Care Rod Placer Name Role Phone Maribell Bland APRN Primary Care Provider [phone] Vianca Golden MD Unavailable [phone] Roberth Dee OD Unavailable [phone] Reason for Visit * Reason Comments Medication Refill Encounter Details Date Type Department Care Team (Late st Contact Info) Description 10/10/2024 Refill [facility] [address] [facility] [address] [place] [phone] Maribell Bland APRN [address] [facility] [address] [place] [address] Type II diabetes mellitus with neurological manifestations (HCC) Social History Tobacco Use Types Packs/Day Years Used Date Smoking Tobacco: Never Smokeless Tobacco: Never Alcohol Use Standard Drinks/Week Comments Yes 0 (1 standard drink = 0.6 oz pur e alcohol) rare [facility] Utilities Answer Date Recorded In the past 12 months has [employer] electric, gas, oil, or water company threatened to shut off services in your home? No 10/12/2024 Social Connection and Isolation Panel [NHANES] A nswer Date Recorded In a typical week, how many times do you talk on the phone with family, friends, or neighbors? Patient declined 10/12/2024 Frequency of Social Gatherings with Friends and Family Not on file 10/12/2024 Attends Zoroastrianism Services Not on file 10/12 Active Member [...] any time in the past 12 m [facility], were you homeless or living in [...] Info) Description 11/05/2024 10:00 AM EST Treatment [facility] [address] [place] [address] System, Provider Not In China Martinez, PT [address] [facility] 2 [place], [place] [address] 11/10/2024 11:30 AM EST Treatment [facility] [address] [place] [address] China Martinez, PT [address] [facility] 2 [place] [address] 11/12/2024 10:00 AM EST Treatment [facility] [address] [place] [address] China Martinez, PT [address] [facility] 2 [place] [address] 11/17/2024 9:30 AM EDT Treatment [facility] [address] [place] [address] China Martinez, PT [address] [facility] 2 [place] [address] 11/19/2024 10:00 AM EDT Treatment [facility] [address] [place] [address] China Martinez, PT [address] [facility] 2 [place] [address] 02/16/2025 9:00 AM EDT Office Visit [facility] [address] [place] [address] Maribell Bland APRN [address] [place] [address] 02/17/2025 8:00 AM EDT Consult [facility] Endocrinology [place] [address] [place] [address] BaldoMaribell APRN [address] [place] [address] Irma Cabrera MD [address] [place] [address] documented as of this encounter Goals Goal Patient Goal Type Associated Problems Recent Progress Patient-Stated? Author PT STGs Physical Therapy China Salamanca PT Note: In 4 wks... Pt with knee flexion ROM >/=90deg Pt with highest pain <7/10 Pt with knee extension ROM </=5deg Pt with good quad activation in quad set PT LTGs Physical Therapy China Salamanca, CHAR Note: In 10 wks... Pt with knee [...] uncontrolled documented in this encounter Care Teams Rod Placer Relationship Specialty Start Date End Date Maribell Bland, FLIGHT CREW TIME CLERK [address] [place] [address] PCP - General Family Medicine 06/06/21 Vianca Golden MD [address] [place] [address] PCP - [employer] Medicare Attributed 04/09/24 Roberth Dee OD [address] [place] [address] Optometry 09/15/24 documented as of this encounter
--- OUTSIDE RECORDS SUMMARY | 2024-11-04 17:22 | XMS_ITS | Clinical Summary ---
Author Organization [facility] Address [address] [place] [address] Care Team Providers Care Boat Captain Name Role Phone BryonHazel osborne CHAR Primary Care Provider [phone] Medical History Medical History Date Comments Sleep apnea DX:Sleep apnea Family History Medical History Relation Name Comments Breast cancer Neg Hx Colon cancer Neg Hx Endometrial cancer Neg Hx Ovarian cancer Neg Hx Social History Tobacco Use Types Packs/Day Years Used Date Smoking Tobacco: Former Cigarettes Alcohol Use Standard Drinks/Week Comments Not Asked 0 (1 standard drink = 0.6 oz pur e alcohol) Comments Unknown Sex and Gender Information Value Date Recorded Sex Assigned at Not on file Legal Sex Female 9:45 AM EST Gender Identity Not on file Sexual Orientation Not on file Obstetrics History Plan of Treatment Health Maintenance Due Date Last Done Comments Diabetes: Annual GFR (Glomerular Filtration Rate) 1963 Diabetes: Annual Foot Exam 1973 Diabetes: Annual Retina Eye Exam 1973 DTaP,Tdap,and Td Vaccines (1 - Tdap) 1982 Cervical Cancer Screening: P ap Smear 1984 Pneumococcal Vaccine: 50+ Years (1 of 1 - PCV) 2013 Zoster Vaccines (1 of 2) 2013 Cholesterol Screening (Lipid Panel) 08/12/2022 Colorectal Cancer Screening: Colonoscopy 08/12/2022 Depression Screening 08/12/2022 HIV Screening 08/12/2022 Hepatitis C Screening 08/12/2022 Social Influencers of Health Screening 08/12/2022 Diabetes: Annual Urine Albumin-Creatinine Ratio (uACR) 08/23/2022 Diabetes: Blood Sugar Contro l Test (HGBA1C) 08/23/2022 Hypertension/CHF/CAD Annual BMP Blood Test 08/23/2022 RSV Immunization Patients 60 + Years Old (1 - Risk 60-74 years 1-dose series) 2023 COVID-19 Vaccine (1 - 2023-2 5 season) 2024 Influenza Vaccine (#1) 2024 Breast Cancer Screening 12/20/2024 12/21/19 23, 12/15/2021 HIB Vaccines Aged Out No longer eligi ble based on patient's age to complete this topic HPV Vaccines Aged Out No longer eligi ble based on patient's age to complete this topic Hepatitis A Vaccines Aged Out No long er eligible based on patient's age to complete this topic Hepatitis B Vaccines Aged Out No long er eligible based on patient's age to complete this topic IPV Vaccines Aged Out No longer eligi ble based on patient's age to complete this topic MMR Vaccines Aged Out No longer eligi ble based on patient's age to complete this topic Meningococcal ACWY Vaccine Aged Out N o longer eligible based on patient's age to complete this topic Meningococcal B Vacine Aged Out No lo nger eligible based on patient's age to complete this topic Pneumococcal Vaccine: Pediatrics (0 to 5 Years) and At-Risk Patients (6 to 64 Years) Aged Out No longer eligible b ased on patient's age to complete this topic RSV Immunization Patients Under 20 months Aged Out No longer eligible b ased on patient's age to complete this topic Varicella Vaccines Aged Out No longer eligible based on patient's age to complete this topic Procedures Procedure Name Priority Date/Time Associated Diagnosis Comments MAMMOGRAM SCREENING BILATERAL 3D NNEKA WITH CAD Routine 12/20/2022 4:20 PM EDT Encounter for screening mammogram for malignant neoplasm of breast from Last 3 Months or Most Recently Relevant to Health Maintenance Results * MAMMOGRAM SCREENING BILATERAL 3D NNEKA WITH CAD (12/20/2022 4:20 PM EDT) Anatomical Region Laterality Modality Mammography 11/23/2022 9:49 AM EDT Narrative 12/20/2022 4:23 PM EDT This is a summary report. The complete report is available in the patient's medical record. If you cannot access the medical record, please contact the sending organization for a detailed fax or copy. EXAM PERFORMED: ??MAMMOGRAM SCREENING BILATERAL 3D NNEKA WITH CAD EXAM HISTORY: Screening Exam. No palpable abnormality. COMPARISON: 2021, 2015, 2013, 2012 TECHNIQUE: Bilateral full field digital mammography with synthesized (2D) the and Tomosynthesis (3-D) was performed using standard CC and MLO projections. Mammogram was interpreted in correlation with CAD and Tomosynthesis. BREAST DENSITY: There are scattered fibroglandular densities (approximately 25- 50% glandular, B). FINDINGS: Reidentified bilateral typically benign scattered secretory rodlike calcifications. No suspicious masses, grouped microcalcifications, or architectural distortion are identified. Typically benign asymmetries. No axillary lymphadenopathy. IMPRESSION: 1. No mammographic evidence of malignancy 2. Scattered fibroglandular densities BI-RADS Category 2: Benign 3342F RECOMMENDATION: Routine mammography screening. The results of this examination have been communicated to the patient through a lay letter in accordance with the Mammography Quality Standards Act. Report reviewed and signed by : Dr. Harish Fontanez MD on 12/20/2022 4:23 PM. Workstation Name - [id number] Procedure Note Harish Fontanez MD - 10/24/2023 This is a summary report. The complete report is available in thepatient's medical record. If you cannot access the medical record, pleasecontact the sending organization for a detailed fax or copy. EXAM PERFORMED: MAMMOGRAM SCREENING BILATERAL 3D NNEKA WITH CAD EXAM HISTORY: Screening Exam. No palpable abnormality. COMPARISON: 2021, 2015, 2013, 2012 TECHNIQUE: Bilateral full field digital mammography with synthesized (2D)the and Tomosynthesis (3-D) was performed using standard CC and MLOprojections. Mammogram was interpreted in correlation with CAD andTomosynthesis. BREAST DENSITY: There are scattered fibroglandular densities(approximately 25- 50% glandular, B). FINDINGS: Reidentified bilateral typically benign scattered secretoryrodlike calcifications. No suspicious masses, grouped microcalcifications,or architectural distortion are identified. Typically benign asymmetries.No axillary lymphadenopathy. IMPRESSION: 1. No mammographic evidence of malignancy 2. Scattered fibroglandular densities BI-RADS Category 2: Benign 3342F RECOMMENDATION: Routine mammography screening. The results of this examination have been communicated to the patientthrough a lay letter in accordance with the Mammography Quality StandardsAct. Report reviewed and signed by : Dr. Harish Fontanez MD on 12/20/2022 4:23PM. Workstation Name - [id number] us Maribell Bland REVERSE UNIT OPERATOR IMG BI PROCEDURES Final Result from Last 3 Months or Most Recently Relevant to Health Maintenance Care Teams Boat Captain Relationship Specialty Start Date End Date [address] [place] [address] PCP - General Lead Generation Marketing Manager 01/13/15
--- OUTSIDE RECORDS SUMMARY | 2024-11-04 17:22 | XMS_ITS | Encounter Summary ---
Author Organization [facility] Address [address] [place] [address] Care Team Providers Care Optical Effects Camera Operator Name Role Phone Maribell Bland APRN Primary Care Provider [phone] Vianca Golden MD Unavailable [phone] Roberth Dee OD Unavailable [phone] Reason for Visit * Reason Comments PT Treatment * Rehabilitation (Routine) - Authorized Specialty Diagnoses / Procedures Referred By Contact Referred To Contact Physical Therapist / Rehabilitation Diagnoses Bilateral post-traumatic osteoarthritis of knee Pete Macias MD [address] [address] [facility] [address] [place] [address] Referral ID Status Reason Start Date Expiration Date Visits Requested Visits Authorized [id number] Authorized Support Services 09/09/2024 09/08/2025 200 200 Encounter Details Date Type Department Care Team (Late st Contact Info) Description 10/27/2024 10:30 AM EST Treatment [facility] [address] [facility] [address] [place] [address] System, Provider Not In China Martinez, PT [address] [address] Bilateral post-traumatic osteoarthritis of knee (Primary Dx); Chronic pain of left knee; Derangement of lateral meniscus of left knee; Difficulty walking Social History Tobacco Use Types Packs/Day Years Used Date Smoking Tobacco: Never Smokeless Tobacco: Never Alcohol Use Standard Drinks/Week Comments Yes 0 (1 standard drink = 0.6 oz pur e alcohol) rare [facility] Utilities Answer Date Recorded In the [...] and Family Not on file 10/12/2024 Attends [employer] Not on file 10/12 Active Member [...] any time in the past 12 m [facility], were you homeless or living in a retirement (including now)? Patient declined 10/12/2024 Sex and Gender Information Value Date Recorded Sex Assigned at Female 02/07/2023 12:20 PM EDT Gender Identity Female 02/07/2023 12:20 PM EDT Sexual Orientation Choose not to disclose 2022 12:20 PM EDT documented as of this encounter Miscellaneous Notes * Daily/Treatment Note - China Martinez, PT - 10/27/2024 11:08 AM EST Physical Therapy Daily Note Diagnoses ICD-10-CM 1. Bilateral post-traumatic osteoarthritis of knee M17.2 2. Chronic pain of left knee M25.562 G89.29 3. Derangement of lateral meniscus of left knee M23.301 4. Difficulty walking R26.2 Interpretation Services: Subjective: Daily Note Subjective - SatOctober 27, 2024 Row Name Treatment from 10/27/2024 in [facility] Subjective Subjective Improved knee pain over previous session; thinks it's getting slightly better after the fall but she's worried that she might have fallen direnctly onto her knee Treatment Performed: Interventions - SatOctober 27, 2024 Row Name Treatment from 10/27/2024 in [facility] Manual therapy Justification to decrease spasm and pain;to increase capsular ROM and decrease pain 1 STM to quads, DFM to patellar tendon 5' 2 Patellar mobes superior 3' 3 asessment of injury Patient education edu on potential hoffa pad injury - pt symptoms and IONA 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 (no pain with palpation and tapping of tibia, patella, or distal femur today to indication fracture) Therapeutic Procedures Justification to increase range of motion, strength and endurance 3 SAQ on bolster on L w/ 2# AW 2x10 5 long sitting heel slide on KneeGlide x20 6 LAQ 2x10 (10 today) 8 sidelying clamshell 2x10 (seated today) 12 SLR 2x10 13 seated hip ADD x20 Modalities - SatOctober 27, 2024 Row Name Treatment from 10/27/2024 in [facility] Modality Treatment Additional Documentation Cryotherapy Cryotherapy Justification Cold pack applied for pain mgm Patient position supine;sitting Pre Treatment Observation no significant skin abnormalities Applied to L knee Applied post treatment Duration (minutes) 10 Post Treatment Observation no adverse skin reaction Assessment/ Plan: Daily Assessment and Plan - SatOctober 27, 2024 Row Name Treatment from 10/27/2024 in [facility] Assessment/ Plan Assessment Pt reporting improved knee pain compared to previous session; evaluated knee soreness again today and determined likely Hoffa Pad impingement from fall - no sign of fracture this date. Plan Continue progression of gentle strengthening Objective Measurements: documented in this encounter Plan of Treatment Upcoming Encounters Date Type Department Care Team (Late st Contact Info) Description 11/05/2024 10:00 AM EST Treatment [facility] [address] [place] [address] System, Provider Not In China Martinez, PT [address] [id number] 11/10/2024 11:30 AM EST Treatment [facility] [address] [place] [address] China Martinez, PT [address] [address] 11/12/2024 10:00 AM EST Treatment [facility] [address] [place] [address] China Martinez, PT [address] [address] 11/17/2024 9:30 AM EDT Treatment [facility] [address] [place] [address] China Martinez, PT [address] [address] 11/19/2024 10:00 AM EDT Treatment [facility] [place] [address] [facility] [address] [place] [address] China Martinez, PT [address] [address] 02/16/2025 9:00 AM EDT Office Visit [facility] 100 [facility] [address] [place] [address] Maribell Bland, INSULATION WORKER INTERIOR SURFACE [address] [facility] 101 [place] [address] 02/17/2025 8:00 AM EDT Consult [facility] Endocrinology [place] 100 [facility] [address] [place] [address] Maribell Bland, INSULATION WORKER INTERIOR SURFACE [address] [facility] 101 [place] [address] Irma Cabrera MD 100 [facility] 101 [place] [address] documented as of this encounter Goals Goal [...] walking documented in this encounter Care Teams Optical Effects Camera Operator Relationship Specialty Start Date End Date Maribell Bland APRN [address] [place] [address] PCP - General Family Medicine 06/06/21 Vianca Golden MD [address] [place] [address] PCP - [employer] Medicare Attributed 04/09/24 Roberth Dee OD [address] [place] [address] Optometry 09/15/24 documented as of this encounter
--- OUTSIDE RECORDS SUMMARY | 2024-11-04 17:22 | XMS_ITS | Encounter Summary ---
Author Organization [facility] Address [address] [place] [address] Care Team Providers Care [employer] Special Education Teacher Name Role Phone Maribell Bland APRN Primary Care Provider [phone] Vianca Golden MD Unavailable [phone] Roberth Dee OD Unavailable [phone] Encounter Details Date Type Department Care Team (Late Contact Info) Description 03/11/2023 Scanned Document [facility] MECHANICAL ENGINEER SCAN Obstetrics And Gynecology, Scan Social History Tobacco Use Types [...] suspected to have Coronavirus/COVID-19? No / Unsure 03/04/2023 2:52 PM EDT documented as of this encounter Plan of Treatment Upcoming Encounters Date Type Department Care Team (Late Contact Info) Description 11/05/2024 10:00 AM EST Treatment [facility] [address] [place] [address] System, Provider Not In China Martinez, PT 1559 [facility] 2 [place] [address] 11/10/2024 11:30 AM EST Treatment [facility] [address] [place] [address] China Martinez, PT [address] [place] [address] 11/12/2024 10:00 AM EST Treatment [facility] [address] [place] [address] China Martinez, PT [address] [place] [address] 11/17/2024 9:30 AM EDT Treatment [facility] [address] [place] [address] China Martinez, PT [address] [place] [address] 11/19/2024 10:00 AM EDT Treatment [facility] [address] [place] [address] China Martinez, PT [address] [place] [address] 02/16/2025 9:00 AM EDT Office Visit [facility] [address] [place] [address] Maribell Bland APRN [address] [place] [address] 02/17/2025 8:00 AM EDT Consult [facility] Endocrinology [place] [address] [place] [address] Maribell Bland, UMANG [address] [facility] [address] [place] [address] Irma Cabrera MD [address] [address] documented as of this encounter Visit Diagnoses Not on filedocumented in this encounter Care Teams [employer] Special [employer] Teacher Relationship Specialty Start Date End Date Maribell Bland, UMANG [address] [facility] [address] [place] [address] PCP - General Family Medicine 06/06/21 Vianca Golden MD [address] [place] [address] PCP - [employer] Medicare Attributed 04/09/24 Roberth Dee OD [address] [place] [address] Optometry 09/15/24 documented as of this encounter
--- OUTSIDE RECORDS SUMMARY | 2024-11-04 17:22 | XMS_ITS | Encounter Summary ---
Author Organization [facility] Address [address] [place] [address] Care Team Providers Care Coal Cager Name Role Phone Maribell Bland APRN Primary Care Provider [phone] Vianca Golden MD Unavailable [phone] Roberth Dee OD Unavailable [phone] Encounter Details Date Type Department Care Team (Late st Contact Info) Description 12/15/2021 Scanned Document [facility] [address] [facility] [address] [place] [address] Provider, Generic Social History Tobacco Use Types Packs/Day Years [...] Exposure Response Date Recorded In the last month, have you been in contact with someone who was confirmed or suspected to have Coronavirus / COVID-19? No / Unsure 11/23/2021 10:13 AM EDT documented as of this encounter Progress Notes * Maribell Bland APRN - 12/20/2021 7:43 PM EDT No evidence of malignancy. documented in this encounter Plan of Treatment Upcoming Encounters Date Type Department Care Team (Late st Contact Info) Description 11/05/2024 10:00 AM EST Treatment [facility] [address] [place] [address] System, Provider Not In China Martinez, PT [address] [place] [address] 11/10/2024 11:30 AM EST Treatment [facility] [address] [place] [address] China Martinez, PT [address] [place] [address] 11/12/2024 10:00 AM EST Treatment [facility] [address] [place] [address] China Martinez, PT [address] [address] 11/17/2024 9:30 AM EDT Treatment [facility] [address] [place] [address] China Martinez, PT [address] [place] [address] 11/19/2024 10:00 AM EDT Treatment [facility] [address] [place] [address] China Martinez, PT [address] [place] [address] 02/16/2025 9:00 AM EDT Office Visit [facility] [place] [address] [place] [address] [place] [address] Maribell Balnd, BLACKTOP PAVER OPERATOR [address] [facility] 101 [place] [address] 02/17/2025 8:00 AM EDT Consult [facility] Endocrinology [place] [address] [place] [place] [address] Maribell Bland, BLACKTOP PAVER OPERATOR [address] [facility] 101 [place] [address] Irma Cabrera MD [address] [facility] [address] [place] [address] documented as of this encounter Procedures Procedure Name Priority Date/Time Associated Diagnosis Comments IMAGING BREAST/BX/MAMMO 12/15/2021 documented in this encounter Results * IMAGING BREAST/BX/MAMMO (12/15/2021) Anatomical Region Laterality Modality Other 12/15/2021 Narrative 12/15/2021 Ordered by an unspecified provider. Generic Provider IMG LEGACY PROCEDURE S documented in this encounter Visit Diagnoses Not on filedocumented in this encounter Care Teams Coal Cager Relationship Specialty Start Date End Date Maribell Bland, BLACKTOP PAVER OPERATOR [address] [place] [address] PCP - General Family Medicine 06/06/21 Vianca Golden MD [address] [place] [address] PCP - [employer] Medicare Attributed 04/09/24 Roberth Dee, OD [address] [facility] [place] [address] Optometry 09/15/24 documented as of this encounter
--- OUTSIDE RECORDS SUMMARY | 2024-11-04 17:22 | XMS_ITS ---
[facility] Name [facility] History of Medication Use Medication Directions Dispensed Refills Start Date End Date Stat semaglutide (Ozempic, 1 MG/DOSE,) (1 mg/dose pen) prefilled pen injection INJECT 1 MG UNDER THE SKIN ONCE A WEEK. 10/13/2024 active ferrous gluconate (FERGON) 324 MG tablet Take 1 tablet (324 mg total) by mouth every morning with breakfast. Take 2 hours before or 4 hours after acid reducers. active amLODIPine-benazepril (LOTREL) 10-20 MG per capsule TAKE 1 CAPSULE BY MOUTH EVERY DAY 08/04/2024 active ferrous sulfate 325 (65 FE) MG tablet Take 1 tablet (325 mg total) by mouth daily. Take 2 hours before or 4 hours after acid reducers. active atenolol (TENORMIN) 25 MG tablet Take 1 tablet (25 mg total) by mouth daily. 02/23/2020 active Ozempic, 0.25 or 0.5 MG/DOSE, 2 MG/1.5ML prefilled pen injection INJECT 0.5 MG UNDER THE SKIN ONCE A WEEK. 05/20/2022 active multivitamin Tab tablet Take 1 tablet by mouth daily. active semaglutide (OZEMPIC) (1 mg/dose pen) prefilled pen injection Inject 1 mg under the skin once a week. 07/21/2024 active ergocalciferol (VITAMIN D2,DRISDOL) 96973 units Cap Take by mouth. activ e triamcinolone (KENALOG) 0.5 % ointment Apply topically 2 (two) times a day. 04/18/2020 active insulin glargine, BASAGLAR KWIKPEN, 100 UNIT/ML prefilled pen injection Inject 35 units under the skin nightly 09/04/2022 active Problems Problem Status Onset Date Problem Type Date of Resolution Source Difficulty walking active EncounterDiagnosisAct [facility] Thyroid nodule active 2022-11-[address] [facility] [address] Allergic rhinitis active 2022-11-28 ProblemAct [facility] CKD (chronic kidney disease) stage 2, GFR 60-89 ml/min active 2022-11-28 ProblemAct [facility] Asthmatic bronchitis active 2022-11-28 ProblemAct [facility] Bilateral post-traumatic osteoarthritis of knee active EncounterDiagnosisAct [facility] snf current use of insulin active 2015-01-14 ProblemAct [facility] Pityriasis versicolor active 2022-11-28 ProblemAct [facility] Chronic pain of left knee active EncounterDiagnosisAct [facility] Severe nonproliferative diabetic retinopathy without macular edema associated with diabetes mellitus due to underlying condition active 2024-07-21 ProblemAct [facility] Type II diabetes mellitus with neurological manifestations active 2015-01-13 ProblemAct [facility] Achilles tendinitis active 2022-11-28 ProblemAct [facility] Immunodeficiency due to conditions classified elsewhere active ProblemAct [facility] Type 2 diabetes mellitus with diabetic dermatitis, with long-term current use of insulin active 2021-12-01 ProblemAct [facility] Schizoaffective disorder active 2022-11-28 ProblemAct [facility] Benign essential hypertension active 2022-11-28 ProblemAct [facility] Hyperlipidemia active 2022-11-28 ProblemAct [facility] Dysmetabolic syndrome X active 2015-01-13 ProblemAct [facility] Derangement of lateral meniscus of left knee active EncounterDiagnosisAct [facility] Type 2 diabetes mellitus with hypoglycemia with coma active 2015-01-13 ProblemAct [facility] Benign hypertensive renal disease active 2021-04-12 ProblemAct [facility] Immunizations Vaccine Date Source Lot Number Status Tdap 06/28/2016 [facility] completed
--- OUTSIDE RECORDS SUMMARY | 2024-11-04 17:22 | XMS_ITS | Encounter Summary ---
Author Organization [facility] Address [address] [place] [address] Care Team Providers Care Crown Perforator Operator Name Role Phone Pcp, No Primary Care Provider UnavailMaribell Corral APRN Primary Care Provider [phone] Vianca Golden MD Unavailable [phone] Roberth Dee OD Unavailable [phone] Encounter Details Date Type Department Care Team (Late st Contact Info) Description 05/30/2021 Scanned Document [facility] 100 [facility] [address] [place] [address] Family Medicine, Scan Social History Tobacco Use Types Packs/Day Years Used Date Smoking Tobacco: Never Smokeless Tobacco: Never Sex and Gender Information Value Date Recorded Sex Assigned at Female 02/07/2023 12:20 PM EDT Gender Identity Female 02/07/2023 12:20 PM EDT Sexual Orientation Choose not to disclose 2022 12:20 PM EDT documented as of this encounter Progress Notes * Maribell Bland APRN - 08/06/2021 8:11 AM EST Hgba1c 11.6 documented in this encounter Plan of Treatment Upcoming Encounters Date Type Department Care Team (Late st Contact Info) Description 11/05/2024 10:00 AM EST Treatment [facility] [place] [address] [place] [address] System, Provider Not In China Martinez, PT [address] [facility] 2 [place] [address] 11/10/2024 11:30 AM EST Treatment [facility] [address] [place] [address] China Martinez, PT [address]59 [facility] 2 [place] [address] 11/12/2024 10:00 AM EST Treatment [facility] [address] [place] [address] China Martinez, PT [address] [place] [address] 11/17/2024 9:30 AM EDT Treatment [facility] [address] [place] [address] China Martinez, PT [address]59 [facility] 2 [place] [address] 11/19/2024 10:00 AM EDT Treatment [facility] [address] [place] [address] China Martinez, PT 1559 [facility] 2 [place] [address] 02/16/2025 9:00 AM EDT Office Visit [facility] [address] [place] [address] Maribell Bland APRN [address] [place] [address] 02/17/2025 8:00 AM EDT Consult [facility] Endocrinology [place] [address] [place] [address] [place] [address] CharlotteMaribell, HOME HEALTH ASSISTANT [address] [facility] 101 [place] [address] Irma Cabrera MD [address] [facility] 101 [place] [address] documented as of this encounter Procedures Procedure Name Priority Date/Time Associated Diagnosis Comments LAB RESULT 05/30/2021 documented in this encounter Results * LAB RESULT (05/30/2021) 05/30/2021 Scan Family Medicine HX AMB PROCEDURES documented in this encounter Visit Diagnoses Not on filedocumented in this encounter Care Teams Crown Perforator Operator Relationship Specialty Start Date End Date Pcp, No PCP - General General Medicine 04/18/20 06/05/21 Maribell Bland, UMANG [address] [facility] 101 [place] [address] PCP - General Family Medicine 06/06/21 Vianca Golden MD [address] [place] [address] PCP - [employer] Medicare Attributed 04/09/24 Roberth Dee OD [address] [place] [address] Optometry 09/15/24 documented as of this encounter
--- OUTSIDE RECORDS SUMMARY | 2024-11-04 17:22 | XMS_ITS | Encounter Summary ---
Author Organization [facility] Address [address] [place] [address] Care Team Providers Care Manufacturers Representative Name Role Phone Baldo Maribell Vivian HECK Primary Care Provider [phone] Vianca Golden MD Unavailable [phone] Roberth Dee OD Unavailable [phone] Encounter Details Date Type Department Care Team (Late st Contact Info) Description 04/08/2023 Scanned Document [facility] Department of Internal Medicine [place] [address] [place] [address] Ovidio Alvares MD [address] [place] [address] Social History Tobacco Use Types Packs/Day Years [...] 10:00 AM EST Treatment [facility] [place] [address] [place] [address] System, Provider Not In China Martinez, PT 1559 [facility] 2 [place] [address] 11/10/2024 11:30 AM EST Treatment [facility] [address] [place] [address] China Martinez, PT 1559 [facility] 2 [place] [address] 11/12/2024 10:00 AM EST Treatment [facility] [address] [place] [address] China Martinez, PT [address] [place] [address] 11/17/2024 9:30 AM EDT Treatment [facility] [address] [place] [address] China Martinez, PT [address] [place] [address] 11/19/2024 10:00 AM EDT Treatment [facility] [address] [place] [address] China Martinez, PT 1559 [facility] 2 [place] [address] 02/16/2025 9:00 AM EDT Office Visit [facility] [address] [place] [address] Maribell Bland APRN [address] [place] [address] 02/17/2025 8:00 AM EDT Consult [facility] Endocrinology [place] [address] [place] [address] [place], Maribell Park APRN [address] [place] [address] Irma Cabrera MD [address] [facility] 101 [place] [address] documented as of this encounter Visit Diagnoses Not on filedocumented in this encounter Care Teams Manufacturers Representative Relationship Specialty Start Date End Date Maribell Bland, UMANG [address] [facility] 101 [place] [address] PCP - General Family Medicine 06/06/21 Vianca Golden MD [address] [place] [address] PCP - [employer] Medicare Attributed 04/09/24 Roberth Dee OD [address] [place] [address] Optometry 09/15/24 documented as of this encounter
--- OUTSIDE RECORDS SUMMARY | 2024-11-04 17:23 | XMS_ITS ---
Author Organization [facility] Address [address] [place] [id number] Care Team Providers Care Customer Acquisition Specialist Name Role Phone NIKKO UMANG ALINA Primary Care Provider PETE Parekh Unavailable [phone] Allergies Allergen (clinical drug ingredient) Drug/Non Drug Allergy documented on EMR Reaction Allergy Type Onset Date Status penicillin Unknown Drug Allergy Active REASON FOR VISIT LEFT KNEE *PATIENT POP*, LEFT KNEE PAIN Medications Medication SIG (Take, Route, Frequency, Duration) Notes Start Date End Date Status amLODIPine 5 mg 1 tab(s) orally once a day for 30 day(s) Active Ozempic 2 mg/1.5 mL (0.25 mg or 0.5 mg dose) as directed subcutaneously once a week Active PT knee lateral meniscal tear as directed 2-3 tines per week for 4-6 weeks 08/13/2024 08/17/2024 Active atenolol 25 mg 1 tab(s) orally once a day for 30 day(s) Active aspirin 81 mg 1 tab(s) orally once a day for 30 day(s) Active multivitamin 1 tab once a day Active Tresiba 100 units/mL as directed subcuta neously once a day Active Vital Signs BMI 34.7 kg/m2 08/13/2024 Height 66 in 08/13/2024 Weight 215 lbs 08/13/2024 Encounters Encounter Location Date Provider Diagnosis [facility] [address] [place] [id number] 08/13/2024 PETE MILLER Bilateral post-traumatic osteoarthritis of knee M17.2 [...] encounter (ICD-10 - S83.32XA) Plan Of Treatment Medication Medication Name Sig Start Date Stop Date Notes PT knee lateral meniscal tear as directe d 2-3 tines per week for 4-6 weeks 08/13/2024 08/17/2024 Treatment Notes Assessment Notes Bilateral post-traumatic ost eoarthritis of knee The risks, benefits and alternatives to an injection were explained. The patient had the skin cleansed with betadine and alcohol and the injection was placed under sterile conditions. .Medication was placed under sterile condition and with verbal consent. We will also move forward with some physical therapy. Next Appt Details Follow Up: 4 Weeks, Reason: Progress Notes * MONIKA GUILLENDOB: 4 (59 yo F)Acc No.[id number]:08/13/2024 Progress Notes Patient:?MONIKA GUILLEN Provider:?Pete Miller M.D. :1965???Age:58 Y???Sex:Female D ate:08/13/2024 Address:[address] [place] [address] Pcp:ALINA EL APRN Subjective: * Chief Complaints: * ???1. LEFT KNEE *PATIENT POP *. 2. LEFT KNEE PAIN. * HPI: ???General:?Patient is here today for a follow up visit of their?left, knee pain not associated with trauma, knee pain not associated with trauma, The patient has had no particular treatment to date and denies significant prior injury to the area., Notes pain with walking and twisting activities..? * ROS:?CONSTITUTIONAL:?no?weight gain.?no?weight loss.?ALLERGY:?no?ear fullness.?sinus congestion?yes.?Seasonal?yes.?DERMATOLOGY:?dry or sensitive skin?yes.?Positive for?Psoriasis, Psoriasis.?ENDOCRINOLOGY:?diabetes?yes.?ENT:?sinus pain?yes.?Ringing in the ears?yes.?GASTROENTEROLOGY:?heartburn?yes.?no?abdominal pain.?no?constipation.?HEMATOLOGY/LYMPH:?no?easy bruising.?anemia? yes.?NEUROLOGY:?no?tingling/numbness.?no?insomnia.?OPTHAMOLOGY:?no?seasonal eye symptoms.?no?loss of vision.?glasses/contacts?yes.?PSYCHOLOGY:?no?depression.?no?tension/stress.?anxiety?yes.?Positive for?PTSD, PTSD.?MUSCULOSKELETAL:?joint pain?yes.?back pain? yes.? * Medical History:?Anemia, Ast hma, Blood Clots, Diabetes, Irregular Heartbeat, High Blood Pressure, High Cholesterol, Arthritis, Malignant hyperthermia. * Medications:?Taking aspirin 81 mg delayed release tablet 1 tab(s) orally once a day , Taking Tresiba 100 units/mL solution as directed subcutaneously once a day , Taking multivitamin 1 tab once a day , Taking atenolol 25 mg tablet 1 tab(s) orally once a day , Taking Ozempic 2 mg/1.5 mL (0.25 mg or 0.5 mg dose) solution as directed subcutaneously once a week , Taking amLODIPine 5 mg tablet 1 tab(s) orally once a day * Allergies:?Penicillin. Objective: * Vitals:?BMI: 34.7, Ht: 66, W t: 215. * Examination: ???Knee: ?side?bilateral.?Palpation:? pain with palpation over medial femoral condyle, pain to palpation anteriorly.?ROM:?full range of motion with pain at end of flexion. ., decreased, Flexes to, Extends to.?Varus stress:?stable @ 0 & 30.?Valgus Stress:?Stable@ 0 & 30.?[facility]:?negative, Bounce test negative.?Pivot shift?posterior -negative.?Leg examination:?unremarkable, no peripheral edema, no calf pain.?Jodie?negative.?patella compression? painful throughout range of motion with crepitation..?patella palpation? painful lateral facet, painful medial facet.?anterior drawer?negative.?Contralateral?full range of motion without pain, exam non-focal.?posterior drawer?negative.?Skin? Skin without defect, or laceration.?Hip? Hip ranges of motion do not refer to the knee.?Vasculature? Grossly intact distally with cap refill and skin messi within normal limits.? Assessment: * Assessment: 1.?Bilateral post-traumatic osteoarthritis of knee - M17.2 (Primary)???2.?Tear of articular cartilage of left knee, current, initial encounter - S83.32XA??? Plan: * Treatment: * Procedure Codes:?42330 Major Jt (knee,shoulder,hip), Modifiers: LT , J2001 Lidocaine 1% w/o epi, Modifiers: LT , J3301 Kenalog, Modifiers: LT * Follow Up:?4 Weeks * * Electronic signature of GORAN MILLER MD on 11/04/2024 at 05:22 PM EST Sign off status: Pending * Provider:?Pete Miller M.D. Date: ?08/13/2024 Generated for Jeremíasi horacio/Rosie/eTclaus on:?11/04/2024 05:22 PM EST History and Physical Notes * HPI (History of Present Illness) Category Sub-Category Detail Notes Category Not es General Patient is here toda y for a follow up visit of their left, knee pain not associated with trauma, knee pain not associated with trauma, The patient has had no particular treatment to date and denies significant prior injury to the area., Notes pain with walking and twisting activities. Examination Category Sub-Category Detail Notes Category Not es Knee Momo: negative, Bounce test negati ve Pivot shift posterior -negative Palpation: pain with palpation over medial femoral condyle, pain to palpation anteriorly ROM: full range of motion with pain at end of flexion. ., decreased, Flexes to, Extends to Varus stress: stable @ 0 & 30 Leg examination: unremarkable, no per ipheral edema, no calf pain Valgus Stress: Stable@ 0 & 30 Jodie negative Contralateral full range of motion without pain, exam non-focal patella compression painful throughout r barry of motion with crepitation. patella palpation painful lateral face t, painful medial facet anterior drawer negative posterior drawer negative Skin Skin without defect, or laceration Hip Hip ranges of motion do not refer to the knee Vasculature Grossly intact dista lly with cap refill and skin messi within normal limits side bilateral
--- OUTSIDE RECORDS SUMMARY | 2024-11-04 17:23 | XMS_ITS | Encounter Summary ---
Author Organization [facility] Address [address] [place] [address] Care Team Providers Care Boiler Operators Supervisor Name Role Phone Maribell Bland APRN Primary Care Provider [phone] Vianca Golden MD Unavailable [phone] Roberth Dee OD Unavailable [phone] Reason for Visit * Reason Comments PT Treatment * Rehabilitation (Routine) - Authorized Specialty Diagnoses / Procedures Referred By Contact Referred To Contact Physical Therapist / Rehabilitation Diagnoses Bilateral post-traumatic osteoarthritis of knee Pete Macias MD [address] [address] [facility] [address] [place] [address] Referral ID Status Reason Start Date Expiration Date Visits Requested Visits Authorized [id number] Authorized Support Services 09/09/2024 09/08/2025 200 200 Encounter Details Date Type Department Care Team (Late st Contact Info) Description 10/29/2024 10:30 AM EST Treatment [facility] [address] [facility] [address] [place] [address] System, Provider Not In China Martinez, PT [address] [address] Bilateral post-traumatic osteoarthritis of knee (Primary Dx); Chronic pain of left knee; Derangement of lateral meniscus of left knee; Difficulty walking Social History Tobacco Use Types Packs/Day Years Used Date Smoking Tobacco: Never Smokeless Tobacco: Never Alcohol Use Standard Drinks/Week Comments Yes 0 (1 standard drink = 0.6 oz pur e alcohol) rare [facility] Utilities Answer Date Recorded In the [...] and Family Not on file 10/12/2024 Attends [employer] Not on file 10/12 Active Member [...] Daily/Treatment Note - China Martinez, PT - 10/29/2024 11:09 AM EST Physical Therapy Daily Note Diagnoses ICD-10-CM 1. Bilateral post-traumatic osteoarthritis of knee M17.2 2. Chronic pain of left knee M25.562 G89.29 3. Derangement of lateral meniscus of left knee M23.301 4. Difficulty walking R26.2 Interpretation Services: Subjective: Daily Note Subjective - Sophie October 29, 2024 Row Name Treatment from 10/29/2024 in [facility] Subjective Subjective Pt reporting she got an elevated toilet seat yesterday and it came loose and she fell off this AM, landing on the side of the tub and bumping her R elbow and R knee, but her L knee is still bothering her, too Treatment Performed: Interventions - Sophie October 29, 2024 Row Name Treatment from 10/29/2024 in [facility] Manual therapy Justification to decrease spasm and pain;to increase capsular ROM and decrease pain 1 STM to quads, DFM to patellar tendon 5' 2 Patellar mobes superior 3' Patient education edu on potential hoffa pad injury - ice vs heat Therapeutic Procedures Justification to increase range of motion, strength and endurance 3 SAQ on bolster on L 2x10 5 long sitting heel slide on KneeGlide x20 6 LAQ 2x10 (10 today) 12 SLR x10 13 seated hip ADD and ABD x20 Modalities - Sophie October 29, 2024 Row Name Treatment from 10/29/2024 in [facility] Modality Treatment Additional Documentation Cryotherapy Cryotherapy Justification Cold pack applied for pain mgm Patient position supine;sitting Pre Treatment Observation no significant skin abnormalities Applied to L knee Applied post treatment Duration (minutes) 10 Post Treatment Observation no adverse skin reaction Assessment/ Plan: Daily Assessment and Plan - [facility] October 29, 2024 Row Name Treatment from 10/29/2024 in [facility] Assessment/ Plan Assessment Returned to progression of previous round of exercises - pt able to tuan exercises fairlywell today with no inc pain today. Plan Continue progression of gentle strengthening Objective Measurements: documented in this encounter Plan of Treatment Upcoming Encounters Date Type Department Care Team (Late st Contact Info) Description 11/05/2024 10:00 AM EST Treatment [facility] [address] [place] [address] System, Provider Not In China Martinez, PT [address] [id number] 11/10/2024 11:30 AM EST Treatment [facility] [address] [place] [address] China Martinez, PT [address] [id number] 11/12/2024 10:00 AM EST Treatment [facility] [address] [place] [address] China Martinez, PT [address] [address] 11/17/2024 9:30 AM EDT Treatment [facility] [address] [place] [address] China Martinez, PT [address] [address] 11/19/2024 10:00 AM EDT Treatment [facility] [place] [address] [place] [address] China Martinez, PT 1559 [facility] 2 [place] [address] 02/16/2025 9:00 AM EDT Office Visit [facility] [address] [place] [address] Maribell Bland [employer] ENGLISH TE[employer]ER [address] [place], [place] [address] 02/17/2025 8:00 AM EDT Consult [facility] Endocrinology [place] [address] [place] [address] Maribell Bland, [employer] ENGLISH TEACHER [address] [place] [address] Irma Cabrera MD [address] [place] [address] documented as of this encounter Goals Goal [...] walking documented in this encounter Care Teams Boiler Operators Supervisor Relationship Specialty Start Date End Date Maribell BlandUMANG [address] [place] [address] PCP - General Family Medicine 06/06/21 Vianca Golden MD [address] [place], [place] [address] PCP - [employer] Medicare Attributed 04/09/24 Roberth Dee OD [address] [place] [address] Optometry 09/15/24 documented as of this encounter
--- OUTSIDE RECORDS SUMMARY | 2024-11-04 17:23 | XMS_ITS | Encounter Summary ---
Author Organization [facility] Address [address] [place] [address] Care Team Providers Care Superintendent Custodian Janitor Name Role Phone Maribell Bland APRN Primary Care Provider [phone] Vianca Golden MD Unavailable [phone] Roberth Dee OD Unavailable [phone] Encounter Details Date Type Department Care Team (Late st Contact Info) Description 09/14/2024 Scanned Document [facility] [address] [facility] [address] [place] [address] Primary Care, Scan Social History Tobacco Use [...] Info) Description 11/05/2024 10:00 AM EST Treatment [facility] [place] [address] [place] [address] System, Provider Not In China Martinez, PT [address] [facility] 2 [place] [address] 11/10/2024 11:30 AM EST Treatment [facility] [address] [place] [address] China Martinez, PT [address] [place] [address] 11/12/2024 10:00 AM EST Treatment [facility] [address] [place] [address] China Martinez, PT [address] [place] [address] 11/17/2024 9:30 AM EDT Treatment [facility] [address] [place] [address] China Martinez, PT [address] [place] [address] 11/19/2024 10:00 AM EDT Treatment [facility] [address] [place] [address] China Martinez, PT [address] [place] [address] 02/16/2025 9:00 AM EDT Office Visit [facility] [address] [place] [address] Maribell Bland APRN [address] [place] [address] 02/17/2025 8:00 AM EDT Consult [facility] Endocrinology [place] [address] [place] [address] Maribell Bland APRN [address] [place] [address] Irma Cabrera MD [address] [place] [address] documented as of this encounter Goals Goal [...] on filedocumented in this encounter Care Teams Superintendent Custodian Janitor Relationship Specialty Start Date End Date Maribell Bland APRN [address] [facility] [address] [place] [address] PCP - General Family Medicine 06/06/21 Vianca Golden MD [address] [place] [address] PCP - [employer] Medicare Attributed 04/09/24 Roberth Dee OD [address] [place] [address] Optometry 09/15/24 documented as of this encounter
--- OUTSIDE RECORDS SUMMARY | 2024-11-04 17:23 | XMS_ITS | Encounter Summary ---
Author Organization [facility] Address [address] [place] [address] Care Team Providers Care Food Selector Name Role Phone Maribell Bland APRN Primary Care Provider [phone] Vianca Golden MD Unavailable [phone] Roberth Dee OD Unavailable [phone] Encounter Details Date Type Department Care Team (Late st Contact Info) Description 12/29/2021 Scanned Document [facility] [address] [facility] [address] [place] [address] Obstetrics And Gynecology, Scan Social History Tobacco [...] Info) Description 11/05/2024 10:00 AM EST Treatment [facility] [place] [address] [place] [address] System, Provider Not In China Martinez, PT 1559 [facility] 2 [place] [address] 11/10/2024 11:30 AM EST Treatment [facility] [address] [place] [address] China Martinez, PT 1559 [facility] 2 [place], [place] [address] 11/12/2024 10:00 AM EST Treatment [facility] [address] [place] [address] China Martinez, PT 1559 [facility] 2 [place], [place] [address] 11/17/2024 9:30 AM EDT Treatment [facility] [address] [place] [address] China Martinez, PT [address], [place] [address] 11/19/2024 10:00 AM EDT Treatment [facility] [address] [place] [address] China Martinez, PT [address] [address] 02/16/2025 9:00 AM EDT Office Visit [facility] [address] [facility] [address] [place] [address] Maribell Bland APRN [address] [place] [address] 02/17/2025 8:00 AM EDT Consult [facility] Endocrinology [place] [address] [place] [address] Maribell Bland, UMANG [address] [facility] 101 [place] [address] Irma Cabrera MD [address] [address] documented as of this encounter Visit Diagnoses Not on filedocumented in this encounter Care Teams Food Selector Relationship Specialty Start Date End Date Maribell Bland, STAPLER MACHINE [address] [address] PCP - General Family Medicine 06/06/21 Vianca Golden MD [address] [address] PCP - [employer] Medicare Attributed 04/09/24 Roberth Dee OD [address] [place] [address] Optometry 09/15/24 documented as of this encounter
--- OUTSIDE RECORDS SUMMARY | 2024-11-04 17:23 | XMS_ITS | Encounter Summary ---
Author Organization [facility] Address [address] [place] [address] Care Team Providers Care Supervisor Unloading Name Role Phone Maribell Bland APRN Primary Care Provider [phone] Vianca Golden MD Unavailable [phone] Roberth Dee OD Unavailable [phone] Encounter Details Date Type Department Care Team (Late st Contact Info) Description 12/25/[address] [facility] PRIMARY CARE SCAN Maribell Bland APRN [address] [place], [place] [id number] Social History Tobacco Use Types Packs/Day Years [...] 11/05/2024 10:00 AM EST Treatment [facility] [address] [place] [address] System, Provider Not In China Martinez, PT [address] [address] 11/10/2024 11:30 AM EST Treatment [facility] [address] [place] [address] China Martinez, PT [address] [place] [address] 11/12/2024 10:00 AM EST Treatment [facility] [address] [place] [address] China Martinez, PT 1559 [facility] 2 [place] [address] 11/17/2024 9:30 AM EDT Treatment [facility] [address] [place] [address] China Martinez, PT [address] [place] [address] 11/19/2024 10:00 AM EDT Treatment [facility] [address] [place] [address] China Martinez, PT [address] [place] [address] 02/16/2025 9:00 AM EDT Office Visit [facility] [address] [place] [address] Maribell Bland APRN [address] [place] [address] 02/17/2025 8:00 AM EDT Consult [facility] Endocrinology [place] [address] [place] [address] Maribell Bland APRN [address] [place] [address] Irma Cabrera MD [address] [facility] 101 [place] [address] documented as of this encounter Visit Diagnoses Not on filedocumented in this encounter Care Teams Supervisor Unloading Relationship Specialty Start Date End Date Maribell Bland, UMANG [address] [facility] 101 [place] [address] PCP - General Family Medicine 06/06/21 Vianca Golden MD [address] [place] [address] PCP - [employer] Medicare Attributed 04/09/24 Roberth Dee OD [address] [facility] [place] [address] Optometry 09/15/24 documented as of this encounter
--- OUTSIDE RECORDS SUMMARY | 2024-11-04 17:23 | XMS_ITS | Encounter Summary ---
Author Organization [facility] Address [address] [place] [address] Care Team Providers Care Senior Premium Auditor Name Role Phone Maribell Bland APRN Primary Care Provider [phone] Vianca Golden MD Unavailable [phone] Roberth Dee OD Unavailable [phone] Reason for Visit * Reason Comments Medication Refill Encounter Details Date Type Department Care Team (Late st Contact Info) Description 11/22/[address] [facility] 100 [facility] [address] [place] [address] Maribell Bland APRN [address] [place] [address] Type 2 diabetes mellitus with diabetic dermatitis, with long-term current use of insulin ([facility]) Social History Tobacco Use Types Packs/Day Years [...] AM EDT documented as of this encounter Plan of Treatment Upcoming Encounters Date Type Department Care Team (Late st Contact Info) Description 11/05/2024 10:00 AM EST Treatment [facility] [address] [place] [address] System, Provider Not In China Martinez, PT [address] [place] [address] 11/10/2024 11:30 AM EST Treatment [facility] [address] [place] [address] China Martinez, PT [address] [place] [address] 11/12/2024 10:00 AM EST Treatment [facility] [address] [place] [address] China Martinez, PT [address] [place] [address] 11/17/2024 9:30 AM EDT Treatment [facility] [address] [place] [address] China Martinez, PT [address] [place] [address] 11/19/2024 10:00 AM EDT Treatment [facility] [address] [place] [address] China Martinez, PT [address] [place] [address] 02/16/2025 9:00 AM EDT Office Visit [facility] 100 [facility] 101 [place] [address] Maribell Blnad, UMANG [address] [facility] 101 [place] [address] 02/17/2025 8:00 AM EDT Consult [facility] Endocrinology [place] 100 [facility] 101 [place] [address] Maribell Bland, CLEAN ROOM TECHNICIAN [address] [address] Irma Cabrera MD [address] [address] documented as of this encounter Visit Diagnoses Diagnosis Type 2 diabetes mellitus with diabetic dermatitis, with long-term current use of insulin (HCC) documented in this encounter Care Teams Senior Premium Auditor Relationship Specialty Start Date End Date Maribell Bland, UMANG [address] [address] PCP - General Family Medicine 06/06/21 Vianca Golden MD [address] [address] PCP - [employer] Medicare Attributed 04/09/24 Roberth Dee OD [address] [place] [address] Optometry 09/15/24 documented as of this encounter
--- OUTSIDE RECORDS SUMMARY | 2024-11-04 17:23 | XMS_ITS | Encounter Summary ---
Author Organization [facility] Address [address] [place] [address] Care Team Providers Care Geotechnical Department Manager Name Role Phone Maribell Bland APRN Primary Care Provider [phone] Vianca Golden MD Unavailable [phone] Roberth Dee OD Unavailable [phone] Encounter Details Date Type Department Care Team (Late Contact Info) Description 12/11/[address] [facility] 100 [facility] [address] [place] [phone] Maribell Bland APRN [address] [facility] [address] [place] [address] Social History Tobacco Use Types Packs/Day Years [...] [facility] [address] [place] [address] System, Provider Not In China Martinez, PT 1559 [facility] 2 [place], [place] [address] 11/10/2024 11:30 AM EST Treatment [facility] [address] [place] [address] China Martinez, PT [address], [place] [address] 11/12/2024 10:00 AM EST Treatment [facility] [address] [place] [address] China Martinez, PT [address] [place] [address] 11/17/2024 9:30 AM EDT Treatment [facility] [address] [place] [address] China Martinez, PT [address] [address] 11/19/2024 10:00 AM EDT Treatment [facility] [address] [place] [address] China Martinez, PT 1559 [facility] 2 [place], [place] [address] 02/16/2025 9:00 AM EDT Office Visit [facility] [address] [place] [address] Maribell Bland, SUPERVISOR [employer] [address] [address] 02/17/2025 8:00 AM EDT Consult [facility] Endocrinology [place] 100 [facility] 101 [place] [address] Maribell Bland, SUPERVISOR [employer] [address] [address] Irma Cabrera MD [address] [address] documented as of this encounter Visit Diagnoses Not on filedocumented in this encounter Care Teams Geotechnical Department Manager Relationship Specialty Start Date End Date Maribell Bland, SUPERVISOR [employer] [address] [address] PCP - General Family Medicine 06/06/21 Vianca Golden MD [address] [address] PCP - A[employer] Medicare Attributed 04/09/24 Roberth Dee OD [address] [place] [address] Optometry 09/15/24 documented as of this encounter
--- OUTSIDE RECORDS SUMMARY | 2024-11-04 17:23 | XMS_ITS | Encounter Summary ---
Author Organization [facility] Address [address] [place] [address] Care Team Providers Care Facilities Specialist Name Role Phone BaldoMaribell APRN Primary Care Provider [phone] Vianca Golden MD Unavailable [phone] Roberth Dee OD Unavailable [phone] Encounter Details Date Type Department Care Team (Latest Contact Info) Description 10/27/2024 Travel Social History Tobacco Use Types Packs/Day Years Used Date Smoking Tobacco: Never Smokeless Tobacco: Never Alcohol Use Standard Drinks/Week Comments Yes 0 (1 standard drink = 0.6 oz pur e alcohol) rare [facility] Utilities Answer Date Recorded In [...] and Family Not on file 10/12/2024 Attends [employer] Not on file 10/12 Active Member [...] any time in the past 12 m [facility], were you homeless or living in a [...] Info) Description 11/05/2024 10:00 AM EST Treatment [facility] [address] [facility] 204 [place] [address] System, Provider Not In China Martinez, PT [address] [address] 11/10/2024 11:30 AM EST Treatment [facility] [address] [place] [address] Michelle China, PT [address], [place] [address] 11/12/2024 10:00 AM EST Treatment [facility] [address] [place] [address] Michelle China, PT [address] [place] [address] 11/17/2024 9:30 AM EDT Treatment [facility] [address] [place] [address] MichelleCapriceChina, PT [address] [place] [address] 11/19/2024 10:00 AM EDT Treatment [facility] [address] [place] [address] MichelleChina, PT [address] [place] [address] 02/16/2025 9:00 AM EDT Office Visit [address] [place] [address] Maribell Bland, BAGEL MAKER [address] [facility] 101 [place] [address] 02/17/2025 8:00 AM EDT Consult [facility] 100 [facility] [address] [place] [address] Maribell Bland, BAGEL MAKER [address] [facility] 101 [place] [address] Irma Cabrera MD [address] [place] [address] documented as of this encounter Goals Goal [...] on filedocumented in this encounter Care Teams Facilities Specialist Relationship Specialty Start Date End Date Maribell Bland APRN [address] [place] [address] PCP - General Family Medicine 06/06/21 Vianca Golden MD [address] [place] [id number] PCP - A[employer] Medicare Attributed 04/09/24 Roberth Dee OD [address] [place] [address] Optometry 09/15/24 documented as of this encounter
--- OUTSIDE RECORDS SUMMARY | 2024-11-04 17:23 | XMS_ITS | Encounter Summary ---
Author Organization [facility] Address [address] [place] [address] Care Team Providers Care Hearing Aid Assistant Name Role Phone Maribell Bland APRN Primary Care Provider [phone] Vianca Golden MD Unavailable [phone] Roberth Dee OD Unavailable [phone] Reason for Visit * Reason Comments PT Treatment * Rehabilitation (Routine) - Authorized Specialty Diagnoses / Procedures Referred By Contact Referred To Contact Physical Therapist / Rehabilitation Diagnoses Bilateral post-traumatic osteoarthritis of knee Pete Macias MD [address] [address] [facility] [address] [place] [address] Referral ID Status Reason Start Date Expiration Date Visits Requested Visits Authorized [id number] Authorized Support Services 09/09/2024 09/08/2025 200 200 Encounter Details Date Type Department Care Team (Late st Contact Info) Description 11/03/2024 10:30 AM EST Treatment [facility] [address] [facility] 204 [place] [address] System, Provider Not In China Martinez, PT [address] [address] Bilateral post-traumatic osteoarthritis of knee (Primary Dx); Chronic pain of left knee; Derangement of lateral meniscus of left knee; Difficulty walking Social History Tobacco Use Types Packs/Day Years Used Date Smoking Tobacco: Never Smokeless Tobacco: Never Alcohol Use Standard Drinks/Week Comments Yes 0 (1 standard drink = 0.6 oz pur e alcohol) rare [facility] Utilities Answer Date Recorded In [...] and Family Not on file 10/12/2024 Attends [employer] Not on file 10/12 Active Member [...] mortgage or rent on time? Patient declined 02/03/20 25 In the past 12 months, how m any times have you moved where you were living? 0 10/12/2024 At any time in the past 12 m [facility], were you homeless or living in a residential (including now)? Patient declined 10/12/2024 Sex and Gender Information Value Date Recorded Sex Assigned at Female 02/07/2023 12:20 PM EDT Gender Identity Female 02/07/2023 12:20 PM EDT Sexual Orientation Choose not to disclose 2022 12:20 PM EDT documented as of this encounter Miscellaneous Notes * Daily/Treatment Note - Chinasindy Martinez, PT - 11/03/2024 11:14 AM EST Physical Therapy Daily Note Diagnoses ICD-10-CM 1. Bilateral post-traumatic osteoarthritis of knee M17.2 2. Chronic pain of left knee M25.562 G89.29 3. Derangement of lateral meniscus of left knee M23.301 4. Difficulty walking R26.2 Interpretation Services: Subjective: Daily Note Subjective - SatNovember 03, 2024 Row Name Treatment from 11/03/2024 in [facility] Subjective Subjective Noting she has continued pain and soreness but not as bad as it has been. Treatment Performed: Interventions - SatNovember 03, 2024 Row Name Treatment from 11/03/2024 in [facility] Manual therapy Justification to decrease spasm and pain;to increase capsular ROM and decrease pain 1 STM to quads, DFM to patellar tendon 5' 2 Patellar mobes superior 3' Therapeutic Procedures Justification to increase range of motion, strength and endurance 2 DKTC on PB x 2 min 3 SAQ on bolster on L 2x10 5 long sitting heel slide on KneeGlide x20 6 LAQ 2x10 13 seated hip ADD and ABD x20 14 seated gastroc stretch c strap 2x30 Modalities - SatNovember 03, 2024 Row Name Treatment from 11/03/2024 in [facility] Modality Treatment Additional Documentation Cryotherapy Cryotherapy Justification Cold pack applied for pain mgm Patient position supine;sitting Pre Treatment Observation no significant skin abnormalities Applied to L knee Applied post treatment Duration (minutes) 10 Post Treatment Observation no adverse skin reaction Assessment/ Plan: Daily Assessment and Plan - SatNovember 03, 2024 Row Name Treatment from 11/03/2024 in [facility] Assessment/ Plan Assessment Pt able to tolerate slight progression of exercises today without increased pain. Plan Continue progression of gentle strengthening Objective Measurements: documented in this encounter Plan of Treatment Upcoming Encounters Date Type Department Care Team (Late st Contact Info) Description 11/05/2024 10:00 AM EST Treatment [facility] [address] [place] [address] System, Provider Not In China Martinez, PT [address] [address] 11/10/2024 11:30 AM EST Treatment [facility] [address] [place] [address] China Martinez, PT [address] [address] 11/12/2024 10:00 AM EST Treatment [facility] [address] [place] [address] China Martinez, PT [address] [address] 11/17/2024 9:30 AM EDT Treatment [facility] [address] [place] [address] China Martinez, PT 1559 [facility] 2 [place] [address] 11/19/2024 10:00 AM EDT Treatment [facility] [address] [place] [address] China Martinez, PT 1559 [facility] 2 [place] [address] 02/16/2025 9:00 AM EDT Office Visit [facility] 100 [facility] [address] [place] [address] Maribell Bland, RUBBER MILL TENDER [address] [place], [place] [address] 02/17/2025 8:00 AM EDT Consult [facility] Endocrinology [place] 100 [facility] [address] [place] [address] Maribell Bland, RUBBER MILL TENDER [address] [address] Irma Cabrera MD [address] [place] [address] documented as of this encounter Goals Goal [...] walking documented in this encounter Care Teams Hearing Aid Assistant Relationship Specialty Start Date End Date Baldo Maribell [place] [address] [place] [address] PCP - General Family Medicine 06/06/21 Vianca Golden MD [address] [place] [address] PCP - A[employer] Medicare Attributed 04/09/24 Roberth eDe OD [address] [place] [address] Optometry 09/15/24 documented as of this encounter
--- OUTSIDE RECORDS SUMMARY | 2024-11-04 17:23 | XMS_ITS | Encounter Summary ---
Author Organization [facility] Address [address] [place] [address] Care Team Providers Care Desktop Publishing Associate Name Role Phone BaldoMaribell APRN Primary Care Provider [phone] Vianca Golden MD Unavailable [phone] Roberth Dee OD Unavailable [phone] Encounter Details Date Type Department Care Team (Latest Contact Info) Description 11/03/2024 Travel Social History Tobacco Use Types Packs/Day Years Used Date Smoking Tobacco: Never Smokeless Tobacco: Never Alcohol Use Standard Drinks/Week Comments Yes 0 (1 standard drink = 0.6 oz pur e alcohol) rare [facility] Utilities Answer Date Recorded In the [...] and Family Not on file 10/12/2024 Attends [employer] Not on file 10/12 Active Member [...] time in the past 12 m [facility], were you homeless or living in a ch[facility] (including now)? Patient declined 10/12/2024 Sex and Gender Information Value Date Recorded Sex Assigned at Female 02/07/2023 12:20 PM EDT Gender Identity Female 02/07/2023 12:20 PM EDT Sexual Orientation Choose not to disclose 2022 12:20 PM EDT documented as of this encounter Plan of Treatment Upcoming Encounters Date Type Department Care Team (Late st Contact Info) Description 11/05/2024 10:00 AM EST Treatment [facility] [address] [facility] 204 [place] [address] System, Provider Not In China Martinez, PT [address] [address] 11/10/2024 11:30 AM EST Treatment [facility] [address] [place] [address] Michelle China, PT [address], [place] [address] 11/12/2024 10:00 AM EST Treatment [facility] [address] [place] [address] Michelle China, PT [address] [place] [address] 11/17/2024 9:30 AM EDT Treatment [facility] [address] [place] [address] MichelleCapriceChina, PT [address] [place] [address] 11/19/2024 10:00 AM EDT Treatment [facility] [address] [place] [address] MichelleChina, PT [address] [place] [address] 02/16/2025 9:00 AM EDT Office Visit [address] [place] [address] Maribell Bland, LANGUAGE AND LITERATURE DIVISION CHAIR [address] [facility] 101 [place] [address] 02/17/2025 8:00 AM EDT Consult [facility] 100 [facility] [address] [place] [address] Maribell Bland, LANGUAGE AND LITERATURE DIVISION CHAIR [address] [facility] 101 [place] [address] Irma Cabrera MD [address] [place] [address] documented as of this encounter Goals Goal [...] on filedocumented in this encounter Care Teams Desktop Publishing Associate Relationship Specialty Start Date End Date Maribell Bland APRN [address] [place] [address] PCP - General Family Medicine 06/06/21 Vianca Golden MD [address] [place] [id number] PCP - A[employer] Medicare Attributed 04/09/24 Roberth Dee OD [address] [place] [address] Optometry 09/15/24 documented as of this encounter
== END 2024-11-04 14:50 | disposition home or self-care (01) ==
PROVIDERS: PCP Nurse Practitioner Acute Care; Visit Provider Internal Medicine Hypertension Specialist
DX: E11.9 Type 2 diabetes mellitus without complications (principal); I10 Essential (primary) hypertension; R80.9 Proteinuria, unspecified
CPT/HCPCS: 99214

== ENCOUNTER → 2024-11-04 14:06 | Outpatient (BNVA) | payer MEDICARE, SELFPAY | PROVIDERS: PCP Nurse Practitioner Acute Care; Visit Provider Internal Medicine Hypertension Specialist | DX: I10 Essential (primary) hypertension (principal); R80.9 Proteinuria, unspecified; E11.9 Type 2 diabetes mellitus without complications | CPT/HCPCS: 99212 ==

== ENCOUNTER 2025-04-07 14:10 | Outpatient (AMB) | payer MEDICARE, SELFPAY ==
[2025-04-07 14:09] VITALS: BP 144/80; BMI 32.6
--- NOTE | 2025-04-07 14:09 | HO.NEPHOV_ITS ---
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: No Accompanied by: Self / Same As Patient Allergies No Known Allergies Allergy (Verified 04/07/25 14:12) Medication List - Last Reconciled 04/07/25 by Edi Lance MD amlodipine-valsartan 5-160 mg (Exforge) 1 tab PO DAILY atenolol 25 mg PO DAILY clobetasol 0.05% topical BID insulin glargine (Basaglar KwikPen U-100 Insulin) units subcut DAILY metformin ER 500 mg PO BID rosuvastatin 20 mg PO BEDTIME PRN semaglutide (Ozempic) mg subcut QWEEK HPI Comments Details: 58 yr old woman with DM and microalbuminuria Here for annual follow up She was on ozempic- lost about 30 lbs and stopped it due to possible risk of side effects She did not take her antihypertensive medications. 07/22/24; BP sub optimal;Now diagnosed with ? diab retinopathy; Back on Ozempic 11/04/24 ;Overall doing well; c/o body pain 04/07/25 Skin lesion- Lichen Planus - being treated by Dermatology ; REceived antibiotics Amlodipine Benazapril was swithced to Amlodipine VAlsartan Sustained CHRISTINE in February- resolved now [facility] Medical History (Updated 03/04/25 @ 13:38 by Edi Lance MD) Type 2 diabetes mellitus Stage 3 chronic kidney disease HTN (hypertension) Anemia Family History Mother Hypertension Maternal Grandmother Diabetes Father Diabetes Social History Alcohol intake: current Comment: Occasionally Patient Tobacco Use Status: Former Tobacco user Physical Exam Vital Signs: Last Vital Signs BP 144/80 H 04/07/25 14:09 BMI result Body Mass Index 32.6 Const General: comfortable; No acute distress Orientation/consciousness: patient oriented x3 Eyes General: appearance normal, both eyes and all related structures Visual Oquendo: normal visual oquendo by confrontation Neck Neck: Yes supple and Yes no JVD Resp Effort & Inspection: normal respiratory effort and respiratory effort not decreased Auscultation: rhonchi Cardio Palpation: no palpable S3 and no palpable S4 Heart sounds: no rubs GI Inspection: Yes normal to inspection Palpation (GI): Soft to palpation Percussion: Yes normal to percussion Auscultation: normal bowel sounds General: Yes no CVA tenderness Back/Spine/Pelvis Back: no CVA tenderness Skin General skin exam: no petechiae and no purpura Rashes: rashes noted (Left knee) Neuro General: patient oriented x3 and no focal motor deficits Extrem General: No clubbing and No edema Results Reviewed Results Reviewed: February 2025 Cr 1.March Cr 0.8 Assessment & Plan Assessment & Plan (1) Type 2 diabetes mellitus: Code(s): E11.9 - Type 2 diabetes mellitus without complications Category: Medical (2) HTN (hypertension): Code(s): I10 - Essential (primary) hypertension Category: Medical (3) Proteinuria: Code(s): R80.9 - Proteinuria, unspecified Category: Medical (4) CHRISTINE (acute kidney injury): Code(s): N17.9 - Acute kidney failure, unspecified Category: Medical Plan Middle-aged woman with diabetes mellitus and proteinuria. Renal function stable creatinine of 0.8. Recent urine protein creatinine ratio was 210 Blood pressure is acceptable Keep current meds Encouraged her to stay on current medications and stay compliant. Should stay on low-sodium diet. Needs to monitor blood pressure at home; she will buy a home blood pressure cuff. Goal is to maintain A1c less than 7% Sustained CHRISTINE in February REsolved Creatinine back to baseline or 0.8 Orders: Orders Basic Metabolic Panel 6 Months N17.9 - Acute kidney failure, unspecified, R80.9 - Proteinuria, unspecified UA and rflx microscopic 6 Months N17.9 - Acute kidney failure, unspecified, R80.9 - Proteinuria, unspecified Creatinine Urine 6 Months N17.9 - Acute kidney failure, unspecified, R80.9 - Proteinuria, unspecified Total Protein Urine Random 6 Months N17.9 - Acute kidney failure, unspecified, R80.9 - Proteinuria, unspecified Coding Level of Care Code Est Pt Level 4 (82650) Diagnoses Type 2 diabetes mellitus E11.9 HTN (hypertension) I10 Proteinuria R80.9 CHRISTINE (acute kidney injury) N17.9
--- OUTSIDE RECORDS SUMMARY | 2025-04-07 14:51 | XMS_ITS | Encounter Summary ---
Author Organization [facility] Address [address] [place] [address] Care Team Providers Care Machine Attendant Name Role Phone Maribell Bland APRN Primary Care Provider [phone] Vianca Golden MD Unavailable [phone] Roberth Dee OD Unavailable [phone] Encounter Details Date Type Department Care Team (Late st Contact Info) Description 04/08/2023 Scanned Document [facility] Department of Internal Medicine [address] [place] [address] Ovidio Alvares MD Social History Tobacco Use Types Packs/Day Years Used Date Smoking Tobacco: Never Smokeless Tobacco: Never Alcohol Use Standard Drinks/Week Comments Yes 0 (1 standard drink = 0.6 oz pur e alcohol) rare Comments No Sex and Gender Information Value Date Recorded Sex Assigned at Female 02/07/2023 12:20 PM EDT Legal Sex Female 2:34 PM EDT Gender Identity Female 02/07/2023 12:20 PM EDT Sexual Orientation Choose not to disclose 2022 12:20 PM EDT documented as of this encounter Plan of Treatment Not on file documented as of this encounter Visit Diagnoses Not on filedocumented in this encounter Care Teams Machine Attendant Relationship Specialty Start Date End Date Maribell Bland APRN [address] [place], [place] [phone] PCP - General Family Medicine 06/06/21 04/16/25 Vianca Golden MD [address] [place], [place] [address] PCP - A[employer]na Medicare Attributed 04/09/24 Roberth Dee OD [address] [place] [address] Optometry 09/15/24 documented as of this encounter
--- OUTSIDE RECORDS SUMMARY | 2025-04-07 14:51 | XMS_ITS | Clinical Summary ---
Author Organization [facility] Address [address] [place] [address] Phone Care Team Providers Care Shop Welder Name Role Phone Unavailable Primary Care Provider [...] Comments Breast Cancer Screening 1965 Pneumococcal Vaccine: 50+ Years (1 of 2 - PCV) 1982 Colorectal Cancer Screening: Annual FOBT 2012 Colorectal Cancer Screening: Colonoscopy 2012 Colorectal Cancer Screening: Sigmoidoscopy 2012 Diabetes: Ophthalmology Exam 10/10/2020 Diabetes: Pedal Pulse Checked 10/10/2020 Diabetes: Sensory Foot Exam 10/10/2020 Diabetes: Visual Foot Exam 10/10/2020 Diabetes: Hemoglobin A1C 03/05/2025 025, 10/14/2024, 05/30/2021, Additional history exists Influenza Vaccine (#1) 2025 Hepatitis B Vaccine Aged Out No longe r eligible based on patient's age to complete this topic Procedures Procedure Name Priority Date/Time Associated Diagnosis Comments HEMOGLOBIN A1C Routine 12/03/2024 9:12 AM EDT from Last 3 Months or Most Recently Relevant to Health Maintenance Results * (ABNORMAL) Hemoglobin A1c (12/03/2024 9:12 AM EDT) Hemoglobin A1C 6.8(H) <5.7 % of total Hgb [facility] Comment: For someone without known diabetes, a hemoglobin A1c value of 6.5% or greater indicates that they may have diabetes and this should be confirmed with a follow-up test. For someone with known diabetes, a value <7% indicates that their diabetes is well controlled and a value greater than or equal to 7% indicates suboptimal control. A1c targets should be individualized based on duration of diabetes, age, comorbid conditions, and other considerations. Currently, no consensus exists regarding use of hemoglobin A1c for diagnosis of diabetes for children. 12/03/2024 9:12 AM EDT 12/03/2024 9:16 AM EDT Narrative [facility] - 12/03/2024 9:47 PM EDT FASTING:YES FASTING: YES Resulting Agency Comment Performing Organization Information: Site ID: [id number] Name: [facility] Address: [address] [place] [phone] Director: Lindsay Mcfadden us Edi Lance MD LAB BLOOD ORDERABLES Final Res ult [facility] [address] [place] [phone] from Last 3 Months or Most Recently Relevant to Health Maintenance Insurance Medicaid [place] [facility] [place] [employer] Commercial
--- OUTSIDE RECORDS SUMMARY | 2025-04-07 14:51 | XMS_ITS ---
[facility] Name [facility] Organization Unknown Results Test Name/Text Value Interpretation Date Range Source GFRE 36.0 Below low normal 02/22/2025 60 - [facility] LIPASE 30.0 U/L Normal 02/22/2025 12 - 53 [facility] GLUCOSE 121.0 mg/dL Above high normal 02/22/2025 74 - 106 [facility] PROTEIN, TOTAL 7.4 g/dL Normal 02/22/2025 5.7 - 8.2 [facility] CREAT[facility] 1.57 mg/dL Above high normal 02/22/2025 0.55 - 1. 02 [facility] POTASSIUM SERUM 4.2 mmol/L Normal 02/22/2025 3.5 - 5.1 CT [facility] SODIUM 131.0 mmol/L Below low normal 02/22/2025 136 - 145 [facility] BUN 27.0 mg/dL Above high normal 02/22/2025 9 - 23 [facility] ALBUMIN 4.8 g/dL Normal 02/22/2025 3.2 - 4.8 [facility] AST (SGOT) 22.0 U/L Normal 02/22/2025 0 - 34 [facility] CO2 24.0 mmol/L Normal 02/22/2025 20 - 31 [facility] H ALKALINE PHOSPHATASE 52.0 U/L Normal 02/22/2025 45 - 129 [facility] A/G RATIO 1.8 g/dL Normal 02/22/2025 [facility] CHLORIDE 95.0 mmol/L Below low normal 02/22/2025 98 - 107 [facility] ALT (SGPT) 19.0 U/L Normal 02/22/2025 10 - 49 [facility] BUN/CREAT.RATIO 17.2 Normal 02/22/2025 [facility] BILIRUBIN,TOTAL 0.5 mg/dL Normal 02/22/2025 0.3 - 1.2 [facility] GLOBULIN 2.6 g/dL Normal 02/22/2025 2.2 - 3.5 [facility] PATIENT FASTING? UNKNOWN Normal 02/22/2025 CT [facility] MCHC 32.1 g/dL Normal 02/22/2025 31 - 36 [facility] HGB 13.2 g/dL Normal 02/22/2025 12.1 - 15.7 [facility] H EOSINOPHILS 0.0 % Normal 02/22/2025 0 - 6 [facility] H HCT 41.1 % Normal 02/22/2025 36 - 46 [facility] ABSOLUTE MONOS 1.3 K/uL Normal 02/22/2025 0.2 - 1.5 [facility] WBC 11.8 K/uL Above high normal 02/22/2025 3.7 - 10.3 [facility] RDW 14.2 % Above high normal 02/22/2025 11.1 - 13.3 [facility] MPV 10.0 fL Normal 02/22/2025 8 - 12 [facility] NUCLEATED RBC 0.0 % Normal 02/22/2025 0 - 0.2 [facility] IMMATURE GRANULOCYTES 1.0 % Above high normal 02/22/2025 0 - 0.45 [facility] MONOCYTES 11.0 % Normal 02/22/2025 0 - 12 [facility] MCV 81.0 fL Below low normal 02/22/2025 83 - 102 [facility] ABSOLUTE IMMATURE GRANULOCYTES 0.1 K/uL Normal 02/22/2025 0 - 0.3 [facility] RBC 5.08 M/uL Normal 02/22/2025 4 - 5.4 [facility] BASOPHILS 1.0 % Normal 02/22/2025 0 - 2 [facility] ABSOLUTE LYMPHS 2.7 K/uL Normal 02/22/2025 1.5 - 4.9 [facility] ABSOLUTE GRANULOCYTES 7.6 K/uL Above high normal 02/22/2025 2.2 - 7.3 [facility] MCH 26.0 PG Below low normal 02/22/2025 27 - 34 [facility] GRANULOCYTES 64.0 % Normal 02/22/2025 23 - 78 [facility] ABSOLUTE NUCLEATED RBC 0.0 K/uL Normal 02/22/2025 0 - 0.012 [facility] ABSOLUTE EOS 0.0 K/uL Normal 02/22/2025 0 - 0.7 [facility] MH ABSOLUTE BASO 0.1 K/uL Normal 02/22/2025 0 - 0.2 [facility] LYMPHS 23.0 % Normal 02/22/2025 16 - 50 [facility] PLATELET COUNT 379.0 K/uL Normal 02/22/2025 150 - 480 [facility] GROSS DESCRIPTION Received in formalin is an irregularly shaped fragment of skin measuring 0.7 x 0.7 x 0.2 cm. The specimen is serially sectioned and submitted entirely in one cassette. (Gross description performed by [facility].) Normal 12/30/2024 [facility] DIAGNOSIS COMMENT Received from [facility] [facility], [address], [place] [address], are one slide and one block labeled [id number] , which are retained for our files. Normal 12/30/2024 [facility] CLINICAL INFORMATION Psoriasis vs lichen planus Normal 12/30/2024 [facility] History of Medication Use Medication Directions Dispensed Refills Start Date End Date Stat semaglutide (Ozempic, 1 MG/DOSE,) (1 mg/dose pen) prefilled pen injection INJECT 1 MG UNDER THE SKIN ONCE A WEEK. 10/13/2024 active amLODIPine-benazepril (LOTREL) 10-20 MG per capsule TAKE 1 CAPSULE BY MOUTH EVERY DAY 08/04/2024 active semaglutide (OZEMPIC) (1 mg/dose pen) prefilled pen injection Inject 1 mg under the skin once a week. 07/21/2024 active insulin glargine, BASAGLAR KWIKPEN, 100 UNIT/ML prefilled pen injection Inject 35 units under the skin nightly 09/04/2022 active Ozempic, 0.25 or 0.5 MG/DOSE, 2 MG/1.5ML prefilled pen injection INJECT 0.5 MG UNDER THE SKIN ONCE A WEEK. 05/20/2022 active triamcinolone (KENALOG) 0.5 % ointment Apply topically 2 (two) times a day. 04/18/2020 active atenolol (TENORMIN) 25 MG tablet Take 1 tablet (25 mg total) by mouth daily. 02/23/2020 active ergocalciferol (VITAMIN D2,DRISDOL) 75122 units Cap Take by mouth. activ e ferrous gluconate (FERGON) 324 MG tablet Take 1 tablet (324 mg total) by mouth every morning with breakfast. Take 2 hours before or 4 hours after acid reducers. active ferrous sulfate 325 (65 FE) MG tablet Take 1 tablet (325 mg total) by mouth daily. Take 2 hours before or 4 hours after acid reducers. active multivitamin Tab tablet Take 1 tablet by mouth daily. active Allergies Allergen Reaction Severity Comment Documented Date Source Statu s PENICILLIN G UNKNOWN/PATIENT AND FAMILY UNABLE TO DEFINE 12/03/2024 [facility] Problems Problem Status Onset Date Problem Type Date of Resoluti on Source Achilles tendinitis active 2022-11-28 ProblemAct [facility] Benign essential hypertension active 2022-11-28 ProblemAct [facility] Benign hypertensive renal disease active 2021-04-12 ProblemAct HHT Severe nonproliferative diabetic retinopathy without macular edema associated with diabetes mellitus due to underlying condition active 2024-07-21 ProblemAct [facility] T Type 2 diabetes mellitus with diabetic dermatitis, with long-term current use of insulin active 2021-12-01 ProblemAct [facility]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 active 2015-01-14 ProblemAct [facility] Dysmetabolic syndrome X active 2015-01-13 ProblemAct [facility] Type 2 diabetes mellitus with hypoglycemia with coma active 2015-01-13 ProblemAct [facility] Allergic rhinitis active 2022-11-28 ProblemAct [facility] Asthmatic bronchitis active 2022-11-28 ProblemAct [facility] Schizoaffective disorder active 2022-11-28 ProblemAct [facility] Hyperlipidemia active 2022-11-28 ProblemAct [facility] Immunodeficiency due to conditions classified elsewhere active ProblemAct HHT CKD (chronic kidney disease) stage 2, GFR 60-89 ml/min active 2022-11-28 ProblemAct CCT Type II diabetes mellitus with neurological manifestations active 2015-01-13 ProblemAct [facility] Thyroid nodule active 2022-11-28 ProblemAct [facility] CT Pityriasis versicolor active 2022-11-28 ProblemAct [facility] Immunizations Vaccine Date Source Lot Number Status Tdap 06/28/2016 [facility] completed Encounters Encounter Type Encounter Reason Primary Diagnosis Location Date Emergency Abdominal Pain, Nausea, Fatigue, Chills, Headache, Rash Abdominal Pain, Nausea, Fatigue, Chills, Headache, Rash [facility] 02/23/2025 Emergency [facility] 02/22/2025 Ambulatory [facility] without complications [facility] without complications [facility] 02/22/2025 Ambulatory Dermatitis, unspecified Dermatitis, unspecified [facility] 12/03/2024 Ambulatory Bilateral post-traumatic osteoarthritis of knee Bilateral post-traumatic osteoarthritis of knee [facility] 12/01/2024 Ambulatory [facility] 11/17/2024 Ambulatory [facility] 11/12/2024 Ambulatory Bilateral post-traumatic osteoarthritis of knee Bilateral post-traumatic osteoarthritis of knee [facility] 11/05/2024 Ambulatory Bilateral post-traumatic osteoarthritis of knee Bilateral post-traumatic osteoarthritis of knee [facility] 11/03/2024 Ambulatory [facility] 10/29/2024 Ambulatory Bilateral post-traumatic osteoarthritis of knee Bilateral post-traumatic osteoarthritis of knee [facility] 10/27/2024 Ambulatory [facility] 10/23/2024 Ambulatory Type 2 diabetes mellitus with other 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 other diabetic neurological complication [facility] 10/14/2024 Ambulatory Bilateral post-traumatic osteoarthritis of knee Bilateral post-traumatic osteoarthritis of knee [facility] 09/30/2024 Ambulatory Bilateral post-traumatic osteoarthritis of knee Bilateral post-traumatic osteoarthritis of knee [facility] 09/24/2024 Ambulatory Bilateral post-traumatic osteoarthritis of knee Bilateral post-traumatic osteoarthritis of knee [facility] 09/22/2024 Ambulatory Bilateral post-traumatic osteoarthritis of knee Bilateral post-traumatic osteoarthritis of knee [facility] 09/15/2024 Ambulatory Bilateral post-traumatic osteoarthritis of knee Bilateral post-traumatic osteoarthritis of knee [facility] 09/04/2024 Ambulatory Bilateral post-traumatic osteoarthritis of knee Bilateral post-traumatic osteoarthritis of knee [facility] 08/27/2024 Ambulatory Unspecified internal derangement of left knee Unspecified internal derangement of left knee [facility] 07/21/2024 Ambulatory Pain in left knee Pain in left knee [facility] 06/18/2024 Ambulatory Essential (primary) hypertension Essential (primary) hypertension [facility] 10/24/2023 Ambulatory Cervicalgia [facility] 03/04/2023 Ambulatory Unilateral prima ry osteoarthritis, left knee [facility] 02/15/2023 Ambulatory [facility] 02/11/2023 Ambulatory Unilateral prima ry osteoarthritis, left knee [facility] 02/05/2023 Ambulatory Unilateral prima ry osteoarthritis, left knee [facility] 01/31/2023 Ambulatory [facility] 01/24/2023 Ambulatory Unilateral prima ry osteoarthritis, left knee [facility] 01/22/2023 Ambulatory Unilateral prima ry osteoarthritis, left knee [facility] 01/17/2023 Ambulatory [facility] 01/15/2023 Ambulatory [facility] 01/10/2023 Ambulatory [facility] 01/08/2023 Ambulatory [facility] 01/03/2023 Ambulatory Unilateral prima ry osteoarthritis, left knee [facility] 12/26/2022 Ambulatory Unilateral prima ry osteoarthritis, left knee [facility] 12/24/2022 Ambulatory Unilateral prima ry osteoarthritis, left knee [facility] 12/20/2022 Ambulatory Unilateral prima ry osteoarthritis, left knee [facility] 12/13/2022 Ambulatory Pain in left knee [facility] 11/28/2022 Ambulatory Type 2 diabetes mellitus with other diabetic neurological complication [facility] 08/29/2022 Ambulatory Encounter for screening for malignant neoplasm of cervix [facility] 11/23/2021 Ambulatory Encounter for screening for other viral diseases [facility] 08/24/2021 Care Team Organization Name Specialty Phone Email Start Date End [facility] [place] ADT 03/24/20 25 [facility] provided,No Primary Care 02/23/2025 [facility] Maribell Bland DBA MANAGER Primary Care 02/23/2025 025 [facility] [place] CCDA 02/10/2025 [facility] [employer] 11/12/2023 02/09/2024 [facility] [place] ADT [facility] 02/19/2025 [facility] 07/11/2023 [facility] 100[address] [facility] [place] CCDA [facility] Primary Care 04/19/2023 02/06/2025 [facility] provided No Primary Care 01/07/2023 [facility]. No provided Primary Care 01/02/2023 023 [facility] Maribell Bland Primary Care 11/23/2021 03/23/2025 [facility] NO PCP Primary Care 08/24/2021 12/10/2022 [facility] Maribell Bland NP Primary Care 08/24/2021 022
--- OUTSIDE RECORDS SUMMARY | 2025-04-07 14:52 | XMS_ITS | Patient Health Record ---
Author Organization [facility] Address [address] [place] [address] [phone] Care Team Providers Care Agile Test Lead Name Role Phone ALINA EL APRN Primary Care Provider LAURA Parekh Unavailable [phone] Allergies Allergen (clinical drug ingredient) Drug/Non Drug Allergy documented on EMR Reaction Allergy Type Onset Date Status penicillin Unknown Drug Allergy Active Reason For Referral No Information Medications Medication SIG (Take, Route, Frequency, Duration) Notes Start Date End Date Status amLODIPine 5 mg 1 tab(s) orally once a day; Duration: 30 day(s) Active multivitamin 1 tab once a day Active Tresiba 100 units/mL as directed subcuta neously once a day Active Ozempic 2 mg/1.5 mL (0.25 mg or 0.5 mg dose) as directed subcutaneously once a week Active atenolol 25 mg 1 tab(s) orally once a day; Duration: 30 day(s) Active aspirin 81 mg 1 tab(s) orally once a day; Duration: 30 day(s) Active Problems Problem Type SNOMED Code ICD Code Onset Dates Problem Status W/U Status Risk Notes Problem Post-traumati c gonarthrosis, bilateral (209047275) Bilateral post-traumatic osteoarthritis of knee (M17.2) Active confirmed Vital Signs Height 66 in 12/21/2024 Weight 215 lbs 12/21/2024 BMI 34.7 kg/m2 03/22/2025 Encounters Encounter Location Date Provider Diagnosis [facility] [address] [place] [address] [id number] 08/13/2024 LAURA MILLER Bilateral post-traumatic osteoarthritis of knee M17.2 and Tear of articular cartilage of left knee, current, initial encounter S83.32XA [facility] [address] [id number] 12/21/2024 LAURA MILLER Bilateral post-traumatic osteoarthritis of knee M17.2 and Tear of articular cartilage of left knee, current, initial encounter S83.32XA [facility] [address] [id number] 03/22/2025 LAURA MILLER Assessments Encounter Date Diagnosis (ICD Code) Assessment [...] also move forward with some physical therapy. 12/21/2024 Bilateral post-traumatic osteoarthritis of knee (ICD-10 - M17.2) The risks, benefits and alternatives to an injection were explained. The patient had the skin cleansed with betadine and alcohol and the injection was placed under sterile conditions. .Medication was placed under sterile condition and with verbal consent. We will also move forward with some physical therapy. 12/21/2024 Tear of articular cartilage of left knee, current, initial encounter (ICD-10 - S83.32XA) 08/13/2024 Tear of articular cartilage of left knee, current, initial encounter (ICD-10 - S83.32XA) Plan Of Treatment No Information Insurance Providers Payer Name Payer Address Payer Phone Subscriber Number Group Number Insured Name Patient Relationship to Insured Coverage Start Date Coverage End Date [employer] MED[employer]ARE OPEN PLAN [address] [place] [phone] [id number] MONIKA GUILLEN Self - patient is the insured Medical (General) History Medical History History ICD Code Anemia Asthma Blood Clots Diabetes Irregular Heartbeat High Blood Pressure High Cholesterol Arthritis Malignant hyperthermia
--- OUTSIDE RECORDS SUMMARY | 2025-04-07 14:52 | XMS_ITS | Clinical Summary ---
Author Organization [facility] Address [address] [place] [address] Care Team Providers Care Bandage Winding Machine Operator Name Role Phone BryonHazel osborne CHAR Primary Care Provider [phone] Medical History Medical History Date Comments Sleep [...] Panel) 08/12/2022 Colorectal Cancer Screening: Colonoscopy 08/12/2022 HIV Screening 08/12/2022 Hepatitis C Screening 08/12/2022 Social Influencers of Health Screening 08/12/2022 Diabetes: Annual Urine Albumin-Creatinine Ratio (uACR) 08/23/2022 Diabetes: Blood Sugar Contro l Test (HGBA1C) 08/23/2022 Hypertension/CHF/CAD Annual BMP Blood Test 08/23/2022 RSV Immunization Adult Patients (1 - Risk 60-74 years 1-dose series) 2023 COVID-19 Vaccine (1 - 2023-2 5 season) 2024 Depression Screening 09/09/2024 Breast Cancer Screening 12/20/2024 12/21/19 23, 12/15/2021 Influenza Vaccine (#1) 2025 HIB Vaccines Aged Out No longer eligi [...] age to complete this topic Meningococcal B Vaccine Aged Out No l onger eligible based on patient's age to complete [...] on 12/20/2022 4:23 PM. Workstation Name - [id number] Procedure Note Harish Fontanez MD - 10/24/2023 [...] MD on 12/20/2022 4:23PM. Workstation Name - [id number] Maribell Bland GROUND SUPPORT EQUIPMENT ASSEMBLER IMG BI PROCEDURES Final Result from Last 3 Months or Most Recently Relevant to Health Maintenance Care Teams Bandage Winding Machine Operator Relationship Specialty Start Date End Date Hazel Slater APN [address] [place] [address] PCP - General Communication Spec 01/13/15
--- OUTSIDE RECORDS SUMMARY | 2025-04-07 14:52 | XMS_ITS | Clinical Summary ---
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 0 08/26/2014 Active Vitamin D, Ergocalciferol, 28573 UNITS CAPS Take by mouth. 0 Acti ve Multiple Vitamin (MULTIVITAMINS PO) Take by mouth. 0 10/24/2012 Ac tive Lancets (ONETOUCH ULTRASOFT) lancets OneTouch UltraSoft Lancets Miscellaneous test 4-6 times daily Quantity: 4; Refills: 1 Therese Rodrigez APRN; Started 24-Oct-2012 [id number] EA Box 0 10/24/2012 Active glucose blood [...] Refills: 2 Therese Rodrigez APRN; Started 24-Oct-2012 [id number] Miscellaneous Box 0 10/24/2012 Active Active Problems [...] - Risk 60-74 years 1-dose series) 2023 Breast Cancer Screening (Mammogram) 12/20/2024 12/20/2022, 12/15/2021, 07/05/2016 Influenza Vaccine (#1) 2025 Hepatitis B Vaccines Aged Out No long er eligible based on patient's age to complete this topic RSV Ped < 20 months Aged Out No longe r eligible based on patient's age to complete this topic Care Teams Lasting Room Machine Operator Relationship Specialty Start Date End Date Hazel Slater APRN PCP - General Recruiter Account Manager 01/13/15
== END 2025-04-07 14:32 | disposition home or self-care (01) ==
LOC: HO.HKAE 14:11
PROVIDERS: PCP Nurse Practitioner Acute Care; Visit Provider Internal Medicine Hypertension Specialist
DX: E11.9 Type 2 diabetes mellitus without complications (principal); I10 Essential (primary) hypertension; R80.9 Proteinuria, unspecified; N17.9 Acute kidney failure, unspecified
CPT/HCPCS: 99214

== ENCOUNTER → 2025-04-07 14:10 | Outpatient (BNVA) | payer MEDICARE, SELFPAY | PROVIDERS: PCP Nurse Practitioner Acute Care; Visit Provider Internal Medicine Hypertension Specialist | DX: E11.9 Type 2 diabetes mellitus without complications (principal); I10 Essential (primary) hypertension; R80.9 Proteinuria, unspecified; N17.9 Acute kidney failure, unspecified | CPT/HCPCS: 99212 ==